=== PATIENT | male | born 1950 | race Caucasian/White ===

== ENCOUNTER 2025-01-26 13:04 | Outpatient (CLI) | payer MEDICARE, SELFPAY ==
--- NOTE | ~2025-01-26 | XR_ITS ---
XR finger 5th LT min 2V 01/26/2025 13:57 Indication: Fracture left fifth finger Procedure: 4 views left fifth finger Comparison: No prior studies for comparison. Findings: There is an age-indeterminate fracture dorsal base left fifth distal phalanx. Mild diffuse soft tissue swelling. There is osteoarthritis of the distal interphalangeal joint. Impression: 1: Age-indeterminate fracture dorsal base left fifth distal phalanx. Correlate for point tenderness. Reviewed, dictated and finalized at location A. Impression: 1: Age-indeterminate fracture dorsal base left fifth distal phalanx. Correlate for point tenderness.
--- OUTSIDE RECORDS SUMMARY | 2025-01-26 13:23 | XMS_ITS | Encounter Summary ---
Author Organization [facility] Address [address] [place] [address] Care Team Providers Care Auditing Manager Name Role Phone Unavailable Primary Care Provider Unavailabl e Encounter Details Date Type Department Care Team (Late st Contact Info) Description 11/15/2024 Lab Requisition [facility] - DermPath Lab [address] [facility] [place] [id number] Shae Askew MD [address] [place] [address] Neoplasm of uncertain behavior of skin Social History Tobacco Use Types Packs/Day Years Used Date Smoking Tobacco: Never Assessed Sex and Gender Information Value Date Recorded Sex Assigned at Not on file Legal Sex Male 11:55 AM CDT Gender Identity Not on file Sexual Orientation Not on file documented as of this encounter Plan of Treatment Not on file documented as of this encounter Procedures Procedure Name Priority Date/Time Associated Diagnosis Comments DERMATOPATHOLOGY Routine 11/15/2024 9:37 AM CDT Neoplasm of uncertain behavior of skin documented in this encounter Results * DERMATOPATHOLOGY (11/15/2024 9:37 AM CDT) Case Report Dermatopathology Report Case: [id number] Authorizing Provider: Shae Askew MD Collected: 11/15/2024 09:37 AM Ordering Location: [facility] - Received: 11/16/2024 07:59 AM DermPath Lab Pathologist: Maria Luz Hope MD Specimen: Skin, left radial dorsal hand 1:26 PM CDT DERMATOPATHOLOGY LABORATORY Final Diagnosis Specimen A. 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 The specimen consists of a shave biopsy measuring 10x7x3 mm. Jar 0. 1:26 PM T DERMATOPATHOLOGY LABORATORY Microscopic Description Specimen A. SKIN, left radial dorsal hand: The epidermis shows parakeratosis, full thickness disorderly maturation of keratinocytes, mitoses at different levels, and dyskeratotic cells. 1:26 PM T DERMATOPATHOLOGY LABORATORY Disclaimer An external and internal positive and negative controls are appropriate for the histochemical, immunohistochemical and immunofluorescence stain(s) in this case (if any), except where stated explicitly. The performance characteristics of the stain(s) cited in this report were developed and its performance characteristic determined by the Dermatopathology Laboratory at [facility], directed by Dr. Hermilo Martin. These tests need not be, and therefore are not, approved by the [place] Food and Drug Administration. The tests are used for clinical purposes. Billing Codes Specimen Charges Stain Charges 12945 1 1:26 PM CDT DERMATOPATHOLOGY LABORATORY Embedded Images 1:26 PM CDT DERMATOPATHOLOGY LABORATORY Pathology/Cytolo gy TISSUE SPECIMEN FROM SKIN / Unknown 11/15/2024 9:37 AM CDT 11/16/2024 7:59 AM CDT us Shae Askew MD LAB - PATHOLOGY/CYTOLOGY ORDERAB LES Final Result DERMATOPATHOLOGY LABORATORY [facility] - Department of Dermatology [address], [address] [phone] documented in this encounter Visit Diagnoses Diagnosis Neoplasm of uncertain behavior of skin documented in this encounter
--- OUTSIDE RECORDS SUMMARY | 2025-01-26 13:23 | XMS_ITS | Encounter Summary ---
Author Organization [facility] Address [address] [place] [address] Care Team Providers Care Assembler Filters Name Role Phone Issa Dominguez DO Primary Care Provider [phone] Encounter Details Date Type Department Care Team (Late st Contact Info) Description 12/17/2024 Results Follow-Up [facility] Primary Care [id number] [place] [address] [place] [address] [place] [address] [place] [address] COLON CANCER SCREEN, STOOL DNA Social History Tobacco Use Types Packs/Day Years Used Date Smoking Tobacco: Never Smokeless Tobacco: Never Alcohol Use Standard Drinks/Week Comments Yes 0 (1 standard drink = 0.6 oz pur e alcohol) 2 or 3 drinks per week, if any Sex and Gender Information Value Date Recorded Sex Assigned at Not on file Legal Sex Male 11:32 AM CDT Gender Identity Not on file Sexual Orientation Not on file documented as of this encounter Plan of Treatment Upcoming Encounters Date Type Department Care Team (Late st Contact Info) Description 05/23/2025 10:45 AM CREDIT CARD CONTROL CLERK Office Visit [facility] at the [facility] Medicine [address] [place] [address] Nadine Rivera MD [address] [place] [address] 05/23/2025 1:30 PM CREDIT CARD CONTROL CLERK Office Visit [facility] Primary Care [id number] [place] [phone] [place] [address] [place] [address] documented as of this encounter Goals Goal Patient Goal Type Associated Problems Recent Progress Patient-Stated? Author HYPERTENSIO N CARE PLAN GOAL Care Plan [facility] HYPERTENSION CARE PLAN PROBLEM No Issa Dominguez DO documented as of this encounter Visit Diagnoses Not on filedocumented in this encounter Additional Health Concerns Active Problems Noted Date Diagnosed Date [facility] HYPERTENSION CARE PLAN PROBLEM 5 documented as of this encounter Care Teams Assembler Filters Relationship Specialty Start [place] [address] [place] [phone] PCP - General Family Practice 11/11/24 documented as of this encounter
--- OUTSIDE RECORDS SUMMARY | 2025-01-26 13:23 | XMS_ITS | Encounter Summary ---
Author Organization [facility] Address [address] [place] [address] Care Team Providers Care Gas Usage Meter Clerk Name Role Phone Issa Dominguez Primary Care Provider [phone]- [phone] Reason for Visit * Reason Comments Procedure cysto Encounter Details Date Type Department Care Team (Late st Contact Info) Description 01/25/2025 12:40 PM CDT Procedure visit [facility] at the [facility] Medicine [address] [place] [address] Nadine Rivera MD [address] [facility] [address] [place], [place] [id number] Gross hematuria (Primary Dx); BPH with obstruction/lower urinary tract symptoms; Prostate cancer screening Social History Tobacco Use Types Packs/Day Years [...] on file documented as of this encounter Last Filed Vital Signs Vital Sign Reading Time Taken Comments Blood Pressure - - Pulse - - Temperature - - Respiratory Rate - - Oxygen Saturation - - Inhaled Oxygen Concentration - - Weight 83.5 kg (184 lb) 01/25/2025 12:04 PM CDT Height - - Body Mass Index 25.66 11/11/2024 1:11 PM CDT documented in this encounter Progress Notes * Nadine Rivera MD - 01/25/2025 12:09 PM CDT Lake Truong Sr. is a 74 y.o. male 01/25/2025 Chief Complaint Patient presents with Procedure cysto HPI: Lake Truong Sr. is a 74 y.o. male presents today for fu of several urologic issues. He was initially seen for hematospermia.. Urine dipstick and culture were negative on May 24, 2021. He notes that this was an isolated episode. It was a painless event. He has not had this since. The patient had a CT urogram done on June 04, 2021. There were no urinary system calculi. Therewere no upper tract filling defects. There were bilateral renal parapelvic cysts. There was also a 1.9 cm left upper pole renal cyst. The prostate was noted to be enlarged. There was no pelvic lymphadenopathy. The seminal vesicles were prominent. There were bladder diverticuli noted there was an incidental note of bilateral fat-containing inguinal hernias He does have some variable voiding symptoms with decreased flow and urinary frequency. He can have nocturia sometimes up to 2 times per night. He was previously started on tamsulosin and finasteride in June 2021. He is not certain that these have been effective in helping improve his voiding symptoms. He does continue on these medications. His PSA was 4.39 on June 25, 2021. Digital rectal examination in May 2021 revealed a 40 g benign gland. The patient had a prostate MRI on July 24, 2021. Prostate volume was 87.35 cc. There were no concerning focal lesions. There was some BPH with a markedly enlarged median lobe. There were no enlarged lymph nodes. The osseous structures were unremarkable. There were multiple large bladder diverticuli. There was also a small fat-containing left inguinal hernia. His cystoscopy in July 2021 revealed multiple bladder diverticuli. There were no tumors. There was a markedly enlarged median lobe as well as a long prostatic urethra with trilobar hyperplasia. The patient had an office-based prostate biopsy on September 12, 2021. Prostate volume was 85.9 cc. Pathology revealed benign prostatic tissue. There was no malignancy identified. His prostate biopsy tissue was sent for a confirm MDX genetic test which revealed that he was DNA methylation negative suggesting a 96% negative predictive value for high-grade disease and a 90% negative predictive value for upgrade to prostate cancer on repeat prostate biopsy. Follow-up PSA was 1.58 in May 2022. 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 He will have trouble achieving and maintaining erections. He has not been on PDE 5 inhibitors in the past. He is not on nitrates currently. He isnot interested in intervention at this time. Unfortunately, he was recently in the last year (4886-2110). His from a heart attack. He has not engaged in any new relationships. He began having some hematuria in the beginning of January 2025. He had a CT urogram done on January 18, 2025. I personally reviewed the images and agree with the report in the patient's chart. There were small bilateral parapelvic renal cyst. There were no urinary system calculi. There were no concerning renal masses. There were no upper tract filling defects. Theprostate was enlarged. There were numerous bladder diverticuli. Calculated ellipsoid prostate volume was 125 cc His hematuria has fortunately cleared Current Outpatient Medications on File Prior to Visit Medication Sig Dispense Refill finasteride (PROSCAR) 5 mg tablet TAKE 1 TABLET BY MOUTH EVERY DAY 90 Tablet 3 tamsulosin (FLOMAX) 0.4 mg capsule TAKE 1 CAPSULE BY MOUTH EVERY DAY 90 Capsule 3 amLODIPine (NORVASC) 5 mg tablet Take 1 Tablet (5 mg) by mouth daily. 90 Tablet 3 famotidine (PEPCID) 20 mg tablet take 1 tablet by mouth twice a day 180 Tablet 3 glucosamine sulfate (Glucosamine) 500 mg tablet Take 500 mg by mouth daily. EPINEPHrine (EPIPEN) 0.3 mg/0.3 mL Auto-Injector Inject 0.3 mL (0.3 mg) by intramuscular injection 1 time daily as needed for Anaphylaxis. 1 Each 0 red yeast rice 600 mg Tablet Take 600 mg by mouth every 12 hours. No current facility-administered medications on file prior to visit. Allergies Allergen Reactions Peanut Other (See Comments) AIRWAY CLOSES Past Medical History: Diagnosis Date Arthritis BPH (benign prostatic hyperplasia) GERD (gastroesophageal reflux disease) Hx of rheumatic fever x2 Temporomandibular disorder Past Surgical History: Procedure Laterality Date HX CATARACT REMOVAL Bilateral 2022 HX CATARACT REMOVAL Bilateral HX COLONOSCOPY AGE 62 TN LAPAROSCOPY SURG RPR INITIAL INGUINAL HERNIA Bilateral 03/12/2023 HERNIA INGUINAL REPAIR BILATERAL LAPAROSCOPIC WITH MESH performed by Elijah Del Valle MD at [facility] PT DENIES RELEVANT SURGICAL HISTORY Family History Problem Relation Name Age of Onset Heart Disease Father Slade Cancer Mother Qing melanoma Cancer Sister Keiry melanoma Heart Disease Sister Keiry Asthma Sister Keiry Cancer Maternal Grandfather Fritz stomach cancer Heart Disease Paternal Grandfather Aryan Melanoma Brother Tono Truong Diabetes Neg Hx Social History Tobacco Use Smoking status: Never Smokeless tobacco: Never Substance Use Topics Alcohol use: Yes Comment: 2 or 3 drinks per week, if any ROS: 14 point review of systems was done and is negative besides that mentioned in history present illness. Wt 83.5 kg (184 lb) BMI 25.66 kg/m?? Constitutional: well developed, normal attention to grooming Eyes: Moist conjunctiva, Anicteric sclerae ENMT: Moist mucous membranes, ears normal. Normal dentition Respiratory: Nonlabored respirations MSK: able to move all extremities Skin: no visible lesions, warm/dry Neuro: no focal deficits, CN grossly intact Psych: aaox3, normal mood and affect male exam in May 2024 revealed MARY:. Normal sphincter tone, no masses. Prostate showed 50 g benign gland Procedure note. Indication for ostomy: Gross hematuria Cystoscopy: Betadine prep, sterile technique, antibiotics given. The patient was asked if they had any further questions prior to proceeding with the procedure. All questions were answered and the patient consented to the procedure. The cystoscope was introduced into the urethral meatus and advanced into the bladder under direct visualization. The bladder was systematically examined. The bladder was unremarkable and without overt tumor or other mucosal abnormalities. The ureteral orifices appeared normal. The bladder neck was normal on retroflexion. The urethra was unremarkable. There were multiple bladder diverticuli. There were no bladder tumors. Examination of the prostate reveals trilobar hyperplasia with a significant median lobe and significant intravesical prostatic protrusion. No results found for this or any previous visit. Results for orders placed or performed during the hospital encounter of 11/02/21 PATHOLOGY Result Value Ref Range CASE REPORT Surgical Pathology Report Case: [id number] Authorizing Provider: Nadine Rivera MD Collected: 11/02/2021 09:51 AM Ordering Location: [facility] Received: 11/02/2021 09:51 AM Services [facility] Pathologist: Daniel Johnson DO Specimen: Other, specify FINAL DIAGNOSIS A request for ConfirmMDx testing was received 11/01/[address] Nadine Rivera. Tissue blocks are forwarded to [facility] in [place], [place] where the test will be performed. Results will be directly issued to the treating physician by the laboratory performing the test. CLINICAL INFORMATION Z01.89 - Encounter for laboratory test [ICD-10-CM] COMMENT Special stain, immunohistochemical, and/or in situ hybridization results are interpreted with controls that demonstrate appropriate staining reactions. Note on use of immunohistochemistry reagents and in situ hybridization probes: These tests were developed and their performance characteristics determined by [facility], Department of Laboratory Medicine. It has not been cleared or approved by the U.S. Food and Drug Administration. The FDA has determined that such clearance or approval is not necessary. The test is used for clinical purposes. It should not be regarded as investigational or for research. This laboratory is certified to perform high complexity testing. Frozen section/operating room consultation, gross examination and dissection, and case sign out mayhave been performed in part or completely in the following laboratories: [facility], [place] #[id number] [address] [place] [address] [facility], [place] #[id number] [address] [place] [address] [facility], [place] #[id number] [address] [place] [address] This report was created with the Kuaiyong voice-activated dictation system. Inherent to this system is the possibility of syntax, grammar, punctuation and other errors that could impact the interpretation of the report. If there are interpretative questions about aspects of this report, please contact the performing pathologist. Lab Results Component Value Date/Time CREAT 0.97 05/21/2024 10:21 AM CREATPOC 1.00 01/18/2025 01:27 PM Lab Results Component Value Date/Time PSA 1.31 05/21/2024 10:21 AM PSA 1.79 05/19/2023 11:18 AM PSA 1.58 05/27/2022 09:34 AM Lab Results Component Value Date/Time PHUA 6.5 05/24/2021 10:33 AM SGUR 1.009 05/24/2021 10:33 AM URINELEUKOC NEGATIVE 05/24/2021 10:33 AM NITRITEUA NEGATIVE 05/24/2021 10:33 AM KETONEURINE NEGATIVE 05/24/2021 10:33 AM PROTEINUA NEGATIVE 05/24/2021 10:33 AM GLUUA NEGATIVE 05/24/2021 10:33 AM BLOODUA NEGATIVE 05/24/2021 10:33 AM Assessment/Plan: 1. Hematospermia: Urine culture was negative on May 24, 2021. CT urogram on June 04, 2021 was negative for any urinary system calculi or concerning renal masses. There were bilateral renal cyst. There were no upper tract filling defects. His prostate was noted to be quite enlarged. There were bladder diverticuli. Genitourinary exam was unremarkable May 29, 2021 aside from an enlarged prostate (40 g benign), and bilateral atrophic testicles. 2. BPH with lower urinary tract symptoms: Continue with tamsulosin and finasteride. Office cystoscopy on July 24, 2021 reveals trilobar hyperplasia of the prostate with a markedly enlarged median lobe. There were multiple bladder diverticuli and moderate trabeculation noted. He would like to continue with the medications including tamsulosin and finasteride. He feels that his voiding symptoms are well controlled on these medications. He does not want surgical intervention for this at this time. 3. Organic impotence: We did discuss treatment with PDE 5 inhibitors as an option for his symptoms.He would like to consider this. Side effects were reviewed. We also discussed the use of daily Cialis which might help improve voiding and erectile function. We will hold off treatment for his organic impotence at this time. He will let me know if he would like to proceed with this in the future. 4. Elevated PSA: His PSA was 4.39 on June 25, 2021. Digital rectal examination in Mayevealed a 40 g benign gland. The patient had a prostate MRI on July 24, 2021. Prostate volume was 87.35 cc. There were no concerning focal lesions. There was some BPH with a markedly enlarged median lobe. There were no enlarged lymph nodes. The osseous structures were unremarkable. There were multiple large bladder diverticuli. There was also a small fat-containing left inguinal hernia. The patient had an office-based prostate biopsy on September 12, 2021. Prostate volume was 85.9 cc. Pathology revealed benign prostatic tissue. There was no malignancy identified. Confirm MDX genetic test was negative. Follow-up PSA was 1.58 in May 2022 and 1.May. Repeat PSA was 1.31 in May 2024, corrected for finasteride this is 2.62 MARY stable in May 2024 He will follow-up in May 2025 with PSA and MARY. 5. Hematuria: He had gross hematuria in January [address] urogram in January 2025 revealed a markedly enlarged prostate with no hydronephrosis, urinary system calculi, upper tract filling defect, or renal mass. The cystoscopy was negative for any bladder tumors in January 2025. Urine will be sent for microscopy,culture, and cytology. I suspect the hematuria was coming from his prostate. He will let me know if this recurs. We will reassess his symptoms at his follow-up visit in May 2025. TOBACCO COUNSELING He is not a tobacco user. This note was done using Kuaiyong dictation software. The above note may or may not have been proofread for accuracy. documented in this encounter Plan of Treatment Upcoming Encounters Date Type Department Care Team (Late st Contact Info) Description 05/23/2025 10:45 AM ROSE GRADER Office Visit [facility] at the [facility] [address] [place] [address] Nadine Rivera MD [address] [facility] [address] [place] [address] 05/23/2025 1:30 PM ROSE GRADER Office Visit [facility] Primary Care [address] [place] [address] [place] [address] [facility] [place] [address] Pending Results Name Type Priority Associated Diagnoses Date /Time URINE CULTURE Microbiology Routine Gross hematuria 01/25/2025 12:33 PM CDT Scheduled Orders Name Type Priority Associated Diagnoses Orde r Schedule URINE CULTURE Microbiology Routine Gross hematuria Expected: 01/25/2025, Expires: 03/26/2025 documented as of this encounter Goals Goal Patient Goal Type Associated Problems Recent Progress Patient-Stated? Author HYPERTENSIO N CARE PLAN GOAL Care Plan SHAMEKA MYC HYPERTENSION CARE PLAN PROBLEM No Issa Dominguez DO documented as of this encounter Procedures Procedure Name Priority Date/Time Associated Diagnosis Comments URINALYSIS MICROSCOPY ONLY Routine 01/25/2025 12:33 PM CDT Gross hematuria CYTOLOGY, NON GYNE Routine 01/25/2025 12 :32 PM CDT Gross hematuria documented in this encounter Results * URINALYSIS MICROSCOPY ONLY (01/25/2025 12:33 PM CDT) WBC UA NONE SEEN < OR = 5 /HPF [facility] RBC UA NONE SEEN < OR = 2 /HPF [facility] EPITHELIAL CELLS, URINE NONE SEEN < OR = 5 /HPF [facility] BACTERIA UA NONE SEEN NONE SEEN /HPF [facility] HYALINE CAST NONE SEEN NONE SEEN /LPF [facility] URINE NOTE [facility] Comment: This urine was analyzed for the presence of WBC, RBC, bacteria, casts, and other formed elements. Only those elements seen were reported. Test Performed at: [facility] [address] [address] [phone] Annie Michelle Vo Urine URINE SPECIMEN OBTAINED BY CLEAN CATCH PROCEDURE / Unknown 01/25/2025 12:33 PM CDT 01/26/2025 2:50 AM CDT Nadine Rivera MD URINE ORDERABLES Final Re sult [facility] [phone] [facility] [address] [address] [phone] * CYTOLOGY, NON GYNE (01/25/2025 12:32 PM CDT) CASE REPORT Medical Cytology Report Case: [id number] Authorizing Provider: Nadine Rivera MD Collected: 01/25/2025 12:32 PM Ordering Location: [facility] at Received: 01/26/2025 07:26 AM the [facility] Pathologist: Gloria Hartley MD Specimen: Urine, clean catch 11:45 AM CDT [facility] FINAL DIAGNOSIS Urine: - Negative for high-grade urothelial carcinoma. See microscopic description. 11:45 AM CDT [facility] at 1145 CDT GROSS DESCRIPTION Received is a container labeled Lake Truong Sr. and voided urine. It contains 70 mL of clear yellow fluid. One ThinPrep made. SK 11:45 AM CDT [facility] MICROSCOPIC DESCRIPTION The slide labeled [id number] and Lake Truong. The ThinPrep slide shows scant benign urothelial cells and benign squamous epithelial cells. No high grade urothelial carcinoma is identified. No papillary clusters of urothelial cells are identified, which makes a low grade lesion unlikely. 11:45 AM T [facility] CLINICAL INFORMATION R31.0 - Gross hematuria [ICD-10-CM] 11:45 AM CDT [facility] COMMENT Special stain, immunohistochemical, and/or in situ hybridization results are interpreted with controls that demonstrate appropriate staining reactions. Note on use of immunohistochemistry reagents and in situ hybridization probes: These tests were developed and their performance characteristics determined by [facility], Department of Laboratory Medicine. It has not been cleared or approved by the U.S. Food and Drug Administration. The FDA has determined that such clearance or approval is not necessary. The test is used for clinical purposes. It should not be regarded as investigational or for research. This laboratory is certified to perform high complexity testing. Cases may have been signed out in part or completely in the following laboratories: [facility], CLIA #[id number] [address] [place] [address] [facility], [place] #[id number] [address] [place] [address]. 11:45 AM CDT [facility] Body fluid URINE SPECIMEN OBTAINED BY CLEAN CATCH PROCEDURE / Unknown Collection / Unknown 01/25/2025 12:32 PM CDT 01/26/2025 7:26 AM CDT Nadine Rivera MD PATHOLOGY/CYTOLOGY ORDERA BLEBlossom Final Result [facility] CLIA# [id number] [address] [place] [address] [place] [address] documented in this encounter Visit Diagnoses Diagnosis Gross hematuria- Primary BPH with obstruction/lower urinary tract symptoms Hypertrophy of prostate with urinary obstruction and other lower urinary tract symptoms (LUTS) Prostate cancer screening Special screening for malignant neoplasm of prostate documented in this encounter Additional Health Concerns Active Problems Noted Date Diagnosed Date SHAMEKA MYC HYPERTENSION CARE PLAN PROBLEM 5 documented as of this encounter Care Teams Gas Usage Meter Clerk Relationship Specialty [place] [address] [facility] [place] [id number] PCP - General Family Practice 11/11/24 documented as of this encounter
--- OUTSIDE RECORDS SUMMARY | 2025-01-26 13:23 | XMS_ITS | Clinical Summary ---
Author Organization [facility] Address [address] [place] [address] Phone Care Team Providers Care Gasoline Pump Installer Name Role Phone Krystin Newsome MD Primary Care Provider Allergies Active Allergy Reactions Criticality Noted Date Comments Peanut Allergen Powder-Dnfp Other (see Comments) High 02/12/2023 AIRWAY CLOSES Medications finasteride (PROSCAR) 5 MG Tablet Take 5 mg by mouth. 2 Active tamsulosin (FLOMAX) 0.4 MG Capsule Take 0.4 mg by mouth. 2 Active famotidine (PEPCID) 20 MG TabletIndication s:Gastroesophage al reflux disease, unspecified whether esophagitis present Take 1 Tablet by mouth 2 times daily. 90 Tablet 3 3 Active Red Yeast Rice Extract (RED YEAST RICE PO) Take by mouth. Active HYDROcodone-acet aminophen (NORCO) 5-325 MG TabletIndication s:Non-recurrent bilateral inguinal hernia without obstruction or gangrene Take 1 Tablet by mouth every 8 hours as needed for Moderate or more severe pain. 12 Tablet 3 Active Additional Information Patient not taking.Reported on 09/15/2023 Active Problems No known active problems Social History Tobacco Use Types Packs/Day Years Used Date Smoking Tobacco: Never Smokeless Tobacco: Never Alcohol Use Standard Drinks/Week Comments Yes 0 (1 standard drink = 0.6 oz pur e alcohol) rarely Sex and Gender Information Value Date Recorded Sex Assigned at Not on file Legal Sex Male 9:09 PM CDT Gender Identity Not on file Sexual Orientation Not on file Last Filed Vital Signs Vital Sign Reading Time Taken Comments Blood Pressure 140/60 09/15/2023 2:30 PM CDT Pulse 87 09/15/2023 2:30 PM CDT Temperature 36.7 C (98.1 F) 09/15/2023 2:30 PM CDT Respiratory Rate 18 09/15/2023 2:30 PM CDT Oxygen Saturation 98% 09/15/2023 2:30 PM CDT Inhaled Oxygen Concentration - - Weight 81.6 kg (180 lb) 06/24/2023 1:19 PM STRIPPER OPAQUER Height 180.3 cm (5' 11) 02/02/2023 12:12 PM CDT Body Mass Index 25.1 02/02/2023 12:12 PM CDT Plan of Treatment Health Maintenance Due Date Last Done Comments Hepatitis C Virus (HCV) Screening 1950 TdaP Immunization 1950 Cologuard 10/10/1996 Colonoscopy 10/10/1996 Colorectal Cancer Screening 10/10/1996 Immunochemical Fecal Occult Blood 10/10/1996 Pneumococcal Immunization (5 0+ years) (1 of 1 - PCV) 10/10/2001 Zoster Immunization (1 of 2) 10/10/2001 SARS-COV-2 Immunization (1 - season) 2024 Influenza Immunization (#1) 2025 Respiratory Syncytial Virus (RSV) Immunization (Adult) (1 - 1-dose 75+ series) 10/10/2026 Hepatitis B Immunization Aged Out No longer eligible based on patient's age to complete this topic Human Papillomavirus (HPV) Immunization Aged Out No longer eligible b ased on patient's age to complete this topic Meningococcal Immunization (ACWY) Aged Out No longer eligible based on patient's age to complete this topic Rotavirus Immunization Aged Out No lo nger eligible based on patient's age to complete this topic Insurance MEDICARE [employer] S[employer]IOR SUPPLEMENTAL Care Teams Gasoline Pump Installer Relationship Specialty [place] [id number] [address] [phone] PCP - General Family Medicine 09/04/22
--- OUTSIDE RECORDS SUMMARY | 2025-01-26 13:23 | XMS_ITS | Clinical Summary ---
Author Organization [facility] Address [address] [place] [address] Care Team Providers Care Skein Washer Name Role Phone Unavailable Primary Care Provider Unavailabl e Source Comments [facility],non-owned Affiliates and Associated Physician Practices is amultiple site organization consisting of ambulatory clinics and hospital sitesin [place], [place], [place] and [place]. This disclosure is being madepursuant to the Care Everywhere program and may not contain all information available regarding this patient. Last updated 18.[facility] Encounters Date Type Department Care Team Description 11/15/2024 Lab Requisition [facility] - DermPath Lab [address] [place] [address] Shae Askew MD Neoplasm of uncertain behavior of skin from Last 3 Months Social History Tobacco Use Types Packs/Day Years Used Date Smoking Tobacco: Never Assessed Sex and Gender Information Value Date Recorded Sex Assigned at Not on file Legal Sex Male 11:55 AM CDT Gender Identity Not on file Sexual Orientation Not on file Plan of Treatment Health Maintenance Due Date Last Done Comments COLOGUARD (AGES 45-75) - COL ON CA SCREENING 1950 COLON MONITORING 1950 COLONOSCOPY - COLON CA SCREENING 1950 CT COLONOGRAPHY - COLON CA SCREENING 1950 Colorectal Cancer Screening 1950 FIT - COLON CA SCREENING 1950 FLEX SIG - COLON CA SCREENING 1950 LIPID TESTING 1950 MEDICARE AWV 12 MONTHS 1950 HEPATITIS C SCREENING 10/06/1969 DTAP/TDAP/TD VACCINES (1 - Tdap) 10/10/1970 PNEUMOCOCCAL VACCINE 50+ (1 of 1 - PCV) 10/10/2001 ZOSTER VACCINE (1 of 2) 10/10/2001 COVID-19 VACCINE (1 - 2023-2 5 season) 2024 DEPRESSION SCREENING 07/07/2024 INFLUENZA VACCINE (#1) 2025 Respiratory Syncytial Virus (RSV) Vaccine Pt: or over 60 yrs (1 - 1-dose 75+ series) 10/10/2026 HEPATITIS B VACCINE Aged Out No longe r eligible based on patient's age to complete this topic HIB VACCINE Aged Out No longer eligi ble based on patient's age to complete this topic HPV VACCINE Aged Out No longer eligi ble based on patient's age to complete this topic MENINGOCOCCAL (Group B) VACC INE SHARED DECISION-MAKING Aged Out No longer eligibl e based on patient's age to complete this topic MENINGOCOCCAL GROUPS A/C/Y/W VACCINE Aged Out No longer eligible b ased on patient's age to complete this topic Procedures Procedure Name Priority Date/Time Associated Diagnosis Comments DERMATOPATHOLOGY Routine 11/15/2024 9:37 AM CDT Neoplasm of uncertain behavior of skin from Last 3 Months Results * DERMATOPATHOLOGY (11/15/2024 9:37 AM CDT) Case Report Dermatopathology Report Case: [id number] Authorizing Provider: Shae Askew MD Collected: 11/15/2024 09:37 AM Ordering Location: [facility] - Received: 11/16/2024 07:59 AM DermPath Lab [...] measuring 10x7x3 mm. Jar 0. 1:26 PM CDT DERMATOPATHOLOGY LABORATORY Microscopic Description Specimen A. SKIN, left radial dorsal hand: The epidermis shows parakeratosis, full thickness disorderly maturation of keratinocytes, mitoses at different levels, and dyskeratotic cells. 5 1:26 PM CDT DERMATOPATHOLOGY LABORATORY Disclaimer An external and internal positive and negative controls are appropriate for the histochemical, immunohistochemical and immunofluorescence stain(s) in this case (if any), except where stated explicitly. The performance characteristics of the stain(s) cited in this report were developed and its performance characteristic determined by the Dermatopathology Laboratory at [facility], directed by Dr. Hermilo Martin. These tests need not be, and therefore are not, approved by the [place] Food and Drug Administration. The tests are used for clinical purposes. Billing Codes Specimen Charges Stain Charges 64338 1 5 1:26 PM CDT DERMATOPATHOLOGY LABORATORY Embedded Images 1:26 PM CDT DERMATOPATHOLOGY LABORATORY Pathology/Cytolo gy TISSUE SPECIMEN FROM SKIN / Unknown 11/15/2024 9:37 AM CDT 11/16/2024 7:59 AM CDT Shae Askew MD LAB - PATHOLOGY/CYTOLOGY ORDERAB LES Final Result DERMATOPATHOLOGY LABORATORY [facility] - Department of Dermatology Formerly [facility] [address] [place] [address], [address] [phone] from Last 3 Months Insurance MEDICARE [employer]
--- OUTSIDE RECORDS SUMMARY | 2025-01-26 13:23 | XMS_ITS | Clinical Summary ---
Author Organization [facility] Address [address] [place] [address] Care Team Providers Care Engine Watchman Name Role Phone Issa Dominguez DO Primary Care Provider [phone] Allergies Active Allergy Reactions Criticality Noted Date Comments Peanut Other (See Comments) High 02/12/2023 AIRWAY CLOSES Medications red yeast rice 600 mg Tablet Take 600 mg by mouth every 12 hours. Active EPINEPHrine (EPIPEN) 0.3 mg/0.3 mL Auto-Injector Inject 0.3 mL (0.3 mg) by intramuscular injection 1 time daily as needed for Anaphylaxis. 1 Each 3 Active glucosamine sulfate (Glucosamine) 500 mg tablet Take 500 mg by mouth daily. Active famotidine (PEPCID) 20 mg tablet take 1 tablet by mouth twice a day 180 Tablet 3 4 Active finasteride (PROSCAR) 5 mg tablet TAKE 1 TABLET BY MOUTH EVERY DAY 90 Tablet 3 4 Active tamsulosin (FLOMAX) 0.4 mg capsule TAKE 1 CAPSULE BY MOUTH EVERY DAY 90 Capsule 3 4 Active amLODIPine (NORVASC) 5 mg tablet Take 1 Tablet (5 mg) by mouth daily. 90 Tablet 3 4 Active Active Problems Problem Noted Date Diagnosed Date Restless legs 11/07/2021 Abdominal bloating 11/07/2021 Hyperlipidemia 11/07/2021 Assessment & Plan (11/11/2024 2:04 PM CDT): - His ASCVD risk is calculated at 20%, indicating a high risk for major cardiovascular events within the next decade. - The potential benefits and risks of statin therapy were discussed, including the possibility of muscle aches and pains. - He is advised to continue using red yeast rice for cholesterol management. Prefers to avoid statin at this time due to potential side effect concerns. - A coronary artery calcium score test may be considered if he expresses interest. Hx of rheumatic fever 05/08/2021 Elevated blood pressure read ing without diagnosis of hypertension 05/08/2021 Arthralgia 05/08/2021 Overview (05/08/2021): Seasonal -spring and fall. Chronic low back pain without sciatica Chronic neck pain 05/08/2021 Gastroesophageal reflux disease 05/08/2021 Encounters Date Type Department Care Team Description 01/25/2025 12:40 PM CDT Procedure visit [facility] at the [place] [address] [facility] [address] [place] [phone] Nadine Rivera MD Gross hematuria (Primary Dx); BPH with obstruction/lower urinary tract symptoms; Prostate cancer screening 01/18/2025 1:11 PM CDT - 01/18/2025 11:59 PM CDT Hospital Encounter [facility] [address] [address] Nadine Rivera MD Discharge Disposition: Home or Self Care 01/09/2025 Orders Only [facility] at the [facility] [address] [place] [address] Nadine Rivera MD Gross hematuria (Primary Dx) 12/21/2024 External Device Data STL ABSTRACTION Provider, Abstract 12/17/2024 Results Follow-Up [facility] [address] [facility] [place] [address] Issa Dominguez DO COLON CANCER SCREEN, STOOL DNA 11/30/2024 External Device Data STL ABSTRACTION Provider, Abstract 11/25/2024 External Device Data STL ABSTRACTION Provider, Abstract 11/24/2024 External Device Data STL ABSTRACTION Provider, Abstract 11/23/2024 External Device Data STL ABSTRACTION Provider, Abstract 11/11/2024 1:30 PM CDT Office Visit [facility] [address] [phone] Issa Dominguez DO Benign hypertension (Primary Dx); Pure hypercholesterolemia; Benign prostatic hyperplasia with lower urinary tract symptoms, symptom details unspecified; Screening for colon cancer; Primary osteoarthritis involving multiple joints from Last 3 Months Family History Medical History Relation Name Comments Melanoma Brother 2 Tono Gavaza Heart Disease Father Slade Cancer Maternal Grandfather Fritz stomach cancer Cancer Mother Qing melanoma Heart Disease Paternal Grandfather Ozark Asthma Sister Keiry Cancer Sister Keiry melanoma Heart Disease Sister Keiry Diabetes Neg Hx Relation Name Status Comments Brother 1 Alive Brother 2 Tono [place] Alive Father Slade Maternal Grandfather Fritz Mother Qing Paternal Grandfather [place]ark Sister Keiry Alive Social History Tobacco Use Types Packs/Day Years Used Date Smoking Tobacco: Never Smokeless Tobacco: Never Tobacco Cessation:Counseling Given: Not Answered Alcohol Use Standard Drinks/Week Comments Yes 0 [...] Sign Reading Time Taken Comments Blood Pressure 130/76 11/11/2024 1:11 PM CDT Pulse 94 11/11/2024 1:11 PM CDT Temperature 36.4 C (97.5 F) 11/11/2024 1:11 PM CDT Respiratory Rate 18 05/24/2024 10:51 AM QUARTER SEAMER Oxygen Saturation 97% 11/11/2024 1:11 PM CDT Inhaled Oxygen Concentration - - Weight 83.5 kg (184 lb) 01/25/2025 12:04 PM CDT Height 180.3 cm (5' 11) 11/11/2024 1:11 PM CDT Body Mass Index 25.66 11/11/2024 1:11 PM CDT Plan of Treatment Upcoming Encounters Date Type Department Care Team (Late st Contact Info) Description 05/23/2025 10:45 AM QUARTER SEAMER Office Visit [facility] at the [facility] [address] [place] [phone] Nadine Rivera MD [address] [place] [address] 05/23/2025 1:30 PM QUARTER SEAMER Office Visit [facility] [address] [address] [place] [address] [place] [address] [facility] [place] [address] Health Maintenance Due Date Last Done Comments DTAP/TDAP/TD VACCINES (1 - Tdap) 10/10/1970 COLORECTAL CANCER SCREENING (AUTO ORDER) 10/10/1996 COLORECTAL SCREENING 10/10/1996 Flex Sig/CT Colonography Q 5 years 10/10/1996 PNEUMOCOCCAL VACCINE 50+ YEA RS (1 of 1 - PCV) 10/10/2001 ZOSTER VACCINE (1 of 2) 10/10/2001 FIT/FOBT Q 1 YEAR (AUTO ORDER) 02/08/2024 02/07/2023 , 02/06/2023 FIT/FOBT Q 1 year 02/08/2024 02/07/2023 INFLUENZA VACCINE (#1) 2025 05/20/2024, 2022 Traditional Medicare (ACO) A nnual Wellness Visit 05/21/2025 05/20/2024, 05/15/2023, 05/14/2022, Additional history exists RSV VACCINE (60+ or ) (1 - 1-dose 75+ series) 10/10/2026 Colorectal Cancer Screening 12/11/2027 FIT-DNA Q 3 years 12/11/2027 12/10/2024 FIT/ DNA Q 3 YEARS (AUTO ORDER) 12/11/2027 Colorectal Cancer Screening (AUTO ORDER) 12/10/2029 FLEX SIG/CT COLONOGRAPHY Q 5 YEARS (AUTO ORDER) 12/10/2029 12/10/2024, 12/10/2024 Goals Goal Patient Goal Type Associated Problems Recent Progress Patient-Stated? Author HYPERTENSIO N CARE PLAN GOAL Care Plan [facility] [employer]C HYPERTENSION CARE PLAN PROBLEM No Issa Dominguez, Medical Devices Implanted Type Area Lock Master Device Identifier Shelf Expiration Date Model / Serial / Lot Mesh Parietex Progrip Flat Sht [id number] - [id number] Implanted:Qty : 1 on 03/12/2023 by Elijah Del Valle MD at [facility] Mesh Right: Abdomen [employer] - COVID[employer] [id number] 11/04/2027 [id number] / / [id number] Mesh Parietex Progrip Flat Sht [id number] - [id number] Implanted:Qty : 1 on 03/12/2023 by Elijah Del Valle MD at [facility] Mesh Left: Abdomen [employer] - [employer] [id number] 06/05/2027 [id number] / / [id number] Procedures Procedure Name Priority Date/Time Associated Diagnosis Comments URINALYSIS MICROSCOPY ONLY Routine 01/25/2025 12:33 PM CDT Gross hematuria CYTOLOGY, NON GYNE Routine 01/25/2025 12 :[address] CT UROGRAPHY Routine 01/18/2025 2:00 PM CDT Gross hematuria POC CREATININE Routine 01/18/2025 1:27 PM CDT COLON CANCER SCREEN, STOOL DNA Routine 12/10/2024 11:00 AM CDT Screening for colon cancer OCCULT BLOOD IMMUNOASSAY, COLORECTAL SCREEN Routine 02/07/2023 10:02 AM CDT Screening for colon cancer from Last 3 Months or Most Recently Relevant to Health Maintenance Results * URINALYSIS MICROSCOPY ONLY (01/25/2025 12:33 PM CDT) WBC UA NONE SEEN < OR = 5 /HPF [facility] RBC UA NONE SEEN < OR = 2 /HPF [facility] EPITHELIAL CELLS, URINE NONE SEEN < OR = 5 /HPF [facility] BACTERIA UA NONE SEEN NONE SEEN /HPF [facility] [employer]Blossom [facility] HYALINE CAST NONE SEEN NONE SEEN /LPF [facility] URINE NOTE [facility] Comment: This urine was analyzed for the presence of WBC, RBC, bacteria, casts, and other formed elements. Only those elements seen were reported. Test Performed at: [place] [address] [place] [address] Annie Bowen Urine URINE SPECIMEN OBTAINED BY CLEAN CATCH PROCEDURE / Unknown 01/25/2025 12:33 PM CDT 01/26/2025 2:50 AM CDT us Nadine Rivera MD URINE ORDERABLES Final Re sult [facility] [phone] [place] [address] [place] [address] * CYTOLOGY, NON GYNE (01/25/2025 12:32 PM CDT) CASE REPORT Medical Cytology Report Case: [id number] Authorizing Provider: Nadine Rivera MD Collected: 01/25/2025 12:32 PM Ordering Location: [facility] at Received: 01/26/2025 07:26 AM the [facility] Medicine Pathologist: Gloria Hartley MD Specimen: Urine, clean catch 11:45 AM CDT [facility] FINAL DIAGNOSIS Urine: - Negative for high-grade urothelial carcinoma. See microscopic description. 11:45 AM CDT [facility] at 1145 CDT GROSS DESCRIPTION Received is a container labeled [place] and voided urine. It contains 70 mL of clear yellow fluid. One ThinPrep made. SK 11:45 AM CDT [facility] MICROSCOPIC DESCRIPTION The slide labeled [id number] and [place]. The ThinPrep slide shows scant benign urothelial cells and benign squamous epithelial cells. No high grade urothelial carcinoma is identified. No papillary clusters of urothelial cells are identified, which makes a low grade lesion unlikely. 11:45 AM CDT [facility] CLINICAL INFORMATION R31.0 - Gross hematuria [ICD-10-CM] 11:45 AM CDT [facility] COMMENT Special stain, immunohistochemical, and/or in situ hybridization results are interpreted with controls that demonstrate appropriate staining reactions. Note on use of immunohistochemistry reagents and in situ hybridization probes: These tests were developed and their performance characteristics determined by [facility] Department of Laboratory Medicine. It has not [...] part or completely in the following laboratories: [facility], CLIA #[id number] [address] [place] [address] [facility], CLIA #[id number] [address] [place] [address]. 11:45 AM CDT [facility] Body fluid URINE SPECIMEN OBTAINED BY CLEAN CATCH PROCEDURE / Unknown Collection / Unknown 01/25/2025 12:32 PM CDT 01/26/2025 7:26 AM CDT Nadine Rivera MD PATHOLOGY/CYTOLOGY ORDERA BLES Final Result [facility] CLIA# [id number] [address] [place] [address] * CT UROGRAPHY (01/18/2025 2:00 PM CDT) Anatomical Region Laterality Modality Abdomen, Pelvis Computed Tomogra phy 01/18/2025 1:31 PM CDT Impressions 01/18/2025 6:51 PM CDT IMPRESSION: 1. Similar appearing prostate gland enlargement which protrudes the bladder base. Multiple bilateral bladder diverticula noted. 2. No hydronephrosis or urinary tract calculus. No renal mass. Stable simple left renal cyst. 3. Colonic diverticulosis without diverticulitis. Small hepatic cysts. Small sliding hiatal hernia. Interval bilateral inguinal hernia repair. DICTATION LOCATION: Location 4 Narrative 01/18/2025 6:[address] UROGRAPHY WITH AND WITHOUT IV CONTRAST AND RECONSTRUCTIONS DATE: 01/18/2025 2:00 PM. CLINICAL INDICATION: Hematuria, gross/macroscopic. TECHNIQUE: Multiple contiguous axial images were obtained through the abdomen and pelvis before and after the uneventful administration of IV contrast material. Post processing coronal and sagittal reconstruction images were made from the axial images. The examination was performed with the adjustment of mA according to the patient size and/or the use of Iterative Reconstruction Technique. IV CONTRAST: 100 mL IV Isovue-300. BOWEL CONTRAST: None . COMPARISON: CT urography 06/04/2021. FINDINGS: LOWER CHEST: Scarring and/or subsegmental atelectasis within the lower lobes. LIVER:Small stable cyst within the segment 2. GALLBLADDER: No calcified gallstones. BILE DUCTS: No biliary dilatation. PANCREAS: Within normal limits. SPLEEN: Within normal limits. ADRENALS: Within normal limits. KIDNEYS/URETERS/BLADDER: Chronic bilateral mild perinephric stranding. Symmetric renal cortical enhancement without solid mass. Small bilateral peripelvic cysts. Stable simple appearing cyst from the superior posterior left kidney measuring 0.9 x 1.8 cm. No renal or ureteral calculus. Symmetric bilateral renal contrast excretion with no hydronephrosis. The prostate gland is enlarged, protruding the base of the bladder and having a similar appearance to the prior study. Bladder is incompletely distended and there are numerous bilateral bladder diverticula present, for example from the left side of the bladder measuring 4.3 x 2.8 cm and from the right side posteriorly at 1.4 x 2.8 cm. VESSELS: Atherosclerotic changes without abdominal aortic aneurysm or major vessel occlusion from the aorta. PERITONEUM/RETROPERITONEUM: No pneumoperitoneum, fluid collection, or lymphadenopathy. BOWEL: Small sliding hernia. Decompressed but unremarkable stomach. Several diverticula involve the duodenum which appear similar to the prior study. The appendix is not definitively identified. No bowel obstruction or mesenteric inflammatory changes. Diverticulosis of the descending and sigmoid colon without diverticulitis. ABDOMINAL WALL: Prior bilateral inguinal hernia repair. REPRODUCTIVE ORGANS: Prostate gland enlargement estimated to measure 7.7 x 5.0 x 6.2 cm in craniocaudal, AP, and transverse dimensions. No pelvic fluid collection or lymphadenopathy. BONES: Multilevel degenerative changes in the spine. The L5 segment is partially transitional on the left. Scattered small bone islands. Procedure Note Akhil Dean, DO - 01/18/2025 CT UROGRAPHY WITH AND WITHOUT IV CONTRAST AND RECONSTRUCTIONS DATE: 01/18/2025 2:00 PM. CLINICAL INDICATION: Hematuria, gross/macroscopic. TECHNIQUE: Multiple contiguous axial images were obtained through the abdomen and pelvis before and after the uneventful administration of IV contrast material. Post processing coronal and sagittal reconstruction images were made from the axial images. The examination was performed with the adjustment of mA according to the patient size and/or the use of Iterative Reconstruction Technique. IV CONTRAST: 100 mL IV Isovue-300. BOWEL CONTRAST: None . COMPARISON: CT urography 06/04/2021. FINDINGS: LOWER CHEST: Scarring and/or subsegmental atelectasis within the lower lobes. LIVER:Small stable cyst within the segment 2. GALLBLADDER: No calcified gallstones. BILE DUCTS: No biliary dilatation. PANCREAS: Within normal limits. SPLEEN: Within normal limits. ADRENALS: Within normal limits. KIDNEYS/URETERS/BLADDER: Chronic bilateral mild perinephric stranding. Symmetric renal cortical enhancement without solid mass. Small bilateral peripelvic cysts. Stable simple appearing cyst from the superior posterior left kidney measuring 0.9 x 1.8 cm. No renal or ureteral calculus. Symmetric bilateral renal contrast excretion with no hydronephrosis. The prostate gland is enlarged, protruding the base of the bladder and having a similar appearance to the prior study. Bladder is incompletely distended and there are numerous bilateral bladder diverticula present, for example from the left side of the bladder measuring 4.3 x 2.8 cm and from the right side posteriorly at 1.4 x 2.8 cm. VESSELS: Atherosclerotic changes without abdominal aortic aneurysm or major vessel occlusion from the aorta. PERITONEUM/RETROPERITONEUM: No pneumoperitoneum, fluid collection, or lymphadenopathy. BOWEL: Small sliding hernia. Decompressed but unremarkable stomach. Several diverticula involve the duodenum which appear similar to the prior study. The appendix is not definitively identified. No bowel obstruction or mesenteric inflammatory changes. Diverticulosis of the descending and sigmoid colon without diverticulitis. ABDOMINAL WALL: Prior bilateral inguinal hernia repair. REPRODUCTIVE ORGANS: Prostate gland enlargement estimated to measure 7.7 x 5.0 x 6.2 cm in craniocaudal, AP, and transverse dimensions. No pelvic fluid collection or lymphadenopathy. BONES: Multilevel degenerative changes in the spine. The L5 segment is partially transitional on the left. Scattered small bone islands. IMPRESSION: 1. Similar appearing prostate gland enlargement which protrudes the bladder base. Multiple bilateral bladder diverticula noted. 2. No hydronephrosis or urinary tract calculus. No renal mass. Stable simple left renal cyst. 3. Colonic diverticulosis without diverticulitis. Small hepatic cysts. Small sliding hiatal hernia. Interval bilateral inguinal hernia repair. DICTATION LOCATION: Location [address] ORDERABLES Final Res ult * POC CREATININE (01/18/2025 1:27 PM CDT) CREATININE POC 1.00 0.60 - 1.30 mg/dL 01/18/2025 1:[address] Comment:The GFR result is no t clinically significant on patients <18 or >70 years of age. GFR POC >60 mL/min/1.7 3 sq meter 01/18/2025 1:[address] Comment:eGFR calculated with 2020 CKD-EPI equation. Vegetarian diet, extremely high or low muscle mass, and may affect results. Cystatin C with Glomerular Filtration Rate is a suitable alternative for these patients. Blood, whole 01/18/2025 1:27 PM CDT 01/18/2025 1:29 PM CDT us Nadine Rivera MD POINT OF CARE TESTING Fin al Result [facility] [address] CLIA# [id number] [address] [place] [address] * COLON CANCER SCREEN, STOOL DNA (12/10/2024 11:00 AM CDT) COLOGUARD RESULT Negative Negative [facility] [employer] Comment: The Cologuard Plus (TM) test was performed on this specimen. NEGATIVE TEST RESULT. A negative (normal) Cologuard Plus result means the patient has a [id number] chance of having colorectal cancer (CRC) or advanced precancer (polyps or lesions that could become cancer). Negative is the normal value (reference range) for this assay. Guidelines recommend screening again 3 years after a negative Cologuard Plus result. Continued screening increases the chance of finding CRC early or preventing it entirely. A clinical validation study showed the Cologuard Plus test is effective at ruling out CRC. Out of every 10,000 patients testing negative, approximately 2 will be falsely reassured that they do not have CRC, and out of every 100 patients testing negative, approximately 7 patients will be falsely reassured they do not have advanced precancer. TEST DESCRIPTION: The Cologuard Plus test is a multi-target stool DNA (mt-sDNA) test that analyzes DNA and hemoglobin biomarkers in stool. It uses a proprietary algorithm to qualitatively detect CRC and advanced precancer. It is FDA-approved and indicated for use in adults 45 years or older at average risk for CRC. A positive (abnormal) result should be followed by a colonoscopy. Patients with a negative (normal) result should screen again in 3 years. False positive and false negative results may occur. The USPSTF recommends the Cologuard test as a CRC screening option. Their modeling estimates that screening with the test every 3 years from ages 45-85 could prevent up to 73% of CRC and avoid up to 85% of CRC deaths. A 18,911-patient clinical trial found the Cologuard Plus test effectively detects CRC and precancer. The study found the test was 95% sensitive for CRC, 43% sensitive for advanced precancer, and had a 91% specificity (Cologuard Plus Clinician Brochure. [employer]. [place], [place].). Visit [email or web address].[email or web address] for more test information, references, warnings, and precautions. Stool STOOL SPECIMEN / Unknown 12/10/2024 11:00 AM CDT 12/11/2024 6:35 PM CDT Issa Dominguez DO BODY FLUIDS AND STOOLS Fin al Result [facility] CLIA # [id number] [address] , [address] [place] [address] * OCCULT BLOOD IMMUNOASSAY, COLORECTAL SCREEN (02/07/2023 10:02 AM CDT) FECAL GLOBIN SEE NOTE [facility] Comment: FECAL GLOBIN BY IMMUNOCHEMISTRY Micro Number: [id number] Test Status: Final Specimen Source: Stool Specimen Quality: Adequate Fecal Globin: Not Detected NO COLLECTION DATE RECEIVED. WE HAVE USED THE DATE THE SPECIMEN WAS RECEIVED BY THIS LABORATORY THE COLLECTION DATE. IF THIS IS INCORRECT, PLEASE CONTACT CLIENT SERVICES. PHONE NUMBER: [phone] FASTING: UNKNOWN Test Performed at: [facility] [address] [place] [address] Annie Bowen MD Stool STOOL SPECIMEN / Unknown 02/07/2023 5:45 AM CDT Krystin Newsome MD BODY FLUIDS AND STOOLS Final Result Performing Organization Address [facility] Co de Phone Number [facility] [phone] [address] [place] [address] from Last 3 Months or Most Recently Relevant to Health Maintenance Additional Health Concerns Active Problems Noted Date Diagnosed Date [employer] MYC HYPERTENSION CARE PLAN PROBLEM 5 Insurance MEDICARE PART A AND B [employer] MEDICARE SUPP AESSI RX [facility] Medicare Part D Advance Directives For more information, please contact: [phone] * Full Code (Latest Code Status on File) Date Activated Date Inactivated Comments 03/12/2023 1:31 PM 03/12/2023 8:24 PM * Full Code Date Activated Date Inactivated Comments 03/12/2023 11:29 AM 03/12/2023 1:30 PM * Full Code Date Activated Date Inactivated Comments 03/12/2023 11:23 AM 03/12/2023 11:29 AM Care Teams Engine Watchman Relationship Specialty [place] [address] [phone] PCP - General Family Practice 11/11/24
== END 2025-01-26 13:05 | disposition home or self-care (01) ==
DX: S62.637A Displaced fracture of distal phalanx of left little finger, initial encounter for closed fracture (principal); X58.XXXA Exposure to other specified factors, initial encounter
CPT/HCPCS: 73140

== ENCOUNTER 2025-01-28 18:08 | Emergency (ER) | payer MEDICARE, SELFPAY ==
--- NOTE | ~2025-01-28 | XR_ITS ---
EXAMINATION: XR chest 2V DATE: 01/28/2025 19:08 INDICATION: Fever of unknown origin. Difficult urination. TECHNIQUE: PA and lateral views of the chest were obtained. COMPARISON: None FINDINGS: The lungs are clear with no focal airspace opacities, pulmonary edema, pleural effusion or pneumothor ax. The cardiomediastinal silhouette is normal. Mild anterior wedging of a lower thoracic vertebral b [place], likely T11. IMPRESSION: 1. No acute cardiopulmonary disease. Reviewed, dictated and finalized at location A.
--- NOTE | ~2025-01-28 | CT_ITS ---
EXAMINATION: CT abdomen pelvis w con DATE: 01/28/2025 23:47 INDICATION: Recent urological instrumentation loosening with leukocytosis and fever TECHNIQUE: Computed tomography (CT) of the abdomen and pelvis was performed with 100 mL Omnipaque-350 intravenous contrast. Automated exposure control and iterative reconstruction technique were employe d. The dose-length product was 772.22 mGy-cm. COMPARISON: None FINDINGS: There are bands of discoid atelectasis in the bilateral lower lobes. Heart size is normal. No pericar dial or pleural effusion. Small sliding-type hiatal hernia. Liver, gallbladder, spleen, pancreas, laurita ateral adrenal glands and kidneys are normal. There is mild bilateral perinephric stranding, left gre ater than right. There or 4 bladder diverticula likely related to chronic outlet obstruction given th e enlarged prostate which measures 7.6 x 6.3 x 5.1 cm with nodular impression upon the base of the bl adder. Moderate diverticulosis along the descending and sigmoid colon without adjacent from trace str anding to suggest diverticular colitis. No bowel obstruction. The appendix is not visualized. No reyna cecal inflammatory change to suggest acute appendicitis. No free intraperitoneal gas or fluid. No pat hologically enlarged abdominal or pelvic lymphadenopathy. Mild lumbar levocurvature with moderate to severe spondylosis.. IMPRESSION: 1. No acute intra-abdominal/pelvic process. 2. 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 3. Small sliding-type hiatal hernia. Reviewed, dictated and finalized at location A.
--- OUTSIDE RECORDS SUMMARY | 2025-01-28 18:11 | XMS_ITS | Encounter Summary ---
Author Organization [facility] Address [address] [place] [address] Care Team Providers Care Speech Pathology Teacher Name Role Phone Unavailable Primary Care Provider Unavailabl e Encounter Details Date Type Department Care Team (Late st Contact Info) Description 11/15/2024 Lab Requisition [facility] - DermPath Lab [address] [place] [id number] Shae Askew MD [address] [place] [address] Neoplasm of uncertain behavior of skin Social [...] AM CDT) Case Report Dermatopathology Report Case: [id number] Authorizing Provider: Shae Askew MD Collected: 11/15/2024 09:37 AM Ordering Location: [facility] - Received: 11/16/2024 07:59 AM DermPath [...] characteristic determined by the Dermatopathology Laboratory at [facility], directed by Dr. Hermilo Martin. These tests need not be, and therefore are not, approved by the [place] Food and Drug Administration. The tests are used for clinical purposes. Billing Codes Specimen Charges Stain Charges 79395 1 1:26 PM CDT DERMATOPATHOLOGY LABORATORY Embedded Images 1:26 PM CDT DERMATOPATHOLOGY LABORATORY Pathology/Cytolo gy TISSUE SPECIMEN FROM SKIN / Unknown 11/15/2024 9:37 AM CDT 11/16/2024 7:59 AM CDT us Shae Askew MD LAB - PATHOLOGY/CYTOLOGY ORDERAB LES Final Result DERMATOPATHOLOGY LABORATORY [facility] - Department of Dermatology [address], [address] Floor [address] [phone] documented in this encounter Visit Diagnoses Diagnosis Neoplasm of uncertain behavior of skin documented in this encounter
--- OUTSIDE RECORDS SUMMARY | 2025-01-28 18:11 | XMS_ITS | Clinical Summary ---
Author Organization [facility] Address [address] [place] [address] Phone Care Team Providers Care Pharmacy Coordinator Name Role Phone Krystin Newsome MD Primary [...] 81.6 kg (180 lb) 06/24/2023 1:19 PM CLAM PICKER Height 180.3 cm (5' 11) 02/02/2023 12:12 [...] Insurance MEDICARE [employer] SENIOR SUPPLEMENTAL Care Teams Pharmacy Coordinator Relationship Specialty [place] [id number] [phone] PCP - General Family Medicine 09/04/22
--- OUTSIDE RECORDS SUMMARY | 2025-01-28 18:11 | XMS_ITS | Clinical Summary ---
Author Organization [facility] Address [address] [place] [address] Care Team Providers Care Employee Relations Administrator Name Role Phone Issa Dominguez DO Primary Care Provider +1- [phone] Allergies Active Allergy Reactions Criticality Noted Date [...] Description 01/25/2025 12:40 PM CDT Procedure visit [facility] the [place] [address] [facility] [address] [place] [address] Nadine Rivera MD Gross hematuria (Primary Dx); BPH with obstruction/lower urinary tract symptoms; Prostate cancer screening 01/18/2025 1:11 PM CDT - 01/18/2025 11:59 PM CDT Hospital Encounter [facility] [address] [address] Nadine Rivera MD Discharge Disposition: Home or Self Care 01/09/2025 Orders Only [facility] at the [facility] [address] [place] [address] Nadine Rivera MD Gross hematuria (Primary Dx) 12/21/2024 External Device Data STL ABSTRACTION Provider, Abstract 12/17/2024 Results Follow-Up [facility] [address] [place] [address] [facility] [place] [address] Issa Dominguez DO COLON CANCER SCREEN, STOOL DNA 11/30/2024 External Device Data STL ABSTRACTION Provider, Abstract 11/25/2024 External Device Data STL ABSTRACTION Provider, Abstract 11/24/2024 External Device Data STL ABSTRACTION Provider, Abstract 11/23/2024 External Device Data STL ABSTRACTION Provider, Abstract 11/11/2024 1:30 PM CDT Office Visit [facility] [address] [place] [address] [place] [phone] Issa Dominguez DO Benign hypertension (Primary Dx); Pure hypercholesterolemia; Benign prostatic hyperplasia with lower urinary tract symptoms, symptom details unspecified; Screening for colon cancer; Primary osteoarthritis involving multiple joints from Last 3 Months Family History Medical History Relation Name Comments Melanoma Brother 2 Tono [place]av[place] Heart Disease Father Slade Cancer Maternal Grandfather Fritz stomach cancer Cancer Mother Qing melanoma Heart Disease Paternal Grandfather Speed Asthma Sister Keiry Cancer Sister Keiry melanoma Heart Disease Sister Keiry Diabetes Neg Hx Relation Name Status Comments Brother 1 Alive Brother 2 Tono [place]av[place] Alive Father Slade Maternal Grandfather Fritz Mother Qing Paternal Grandfather Speed Sister Keiry Alive Social History Tobacco Use [...] CDT Respiratory Rate 18 05/24/2024 10:51 AM CITY CARRIER ASSISTANT Oxygen Saturation 97% 11/11/2024 1:11 PM CDT Inhaled Oxygen Concentration - - Weight 83.5 kg (184 lb) 01/25/2025 12:04 PM CDT Height 180.3 cm (5' 11) 11/11/2024 1:11 PM CDT Body Mass Index 25.66 11/11/2024 1:11 PM CDT Plan of Treatment Upcoming Encounters Date Type Department Care Team (Late st Contact Info) Description 05/23/2025 10:45 AM CITY CARRIER ASSISTANT Office Visit [facility] [address] [place] [address] Nadine Rivera MD [address] [place] [address] 05/23/2025 1:30 PM CITY CARRIER ASSISTANT Office Visit [facility] [address] [place] [address] [place] [address] [place] [address] [facility] [place] [address] Health Maintenance Due Date Last Done [...] CARE PLAN PROBLEM No Issa Dominguez DO Medical Devices Implanted Type Area Baker Chef Device Identifier Shelf Expiration Date Model / Serial / Lot Mesh Parietex Progrip Flat Sht [id number] - [id number] Implanted:Qty : 1 on 03/12/2023 by Elijah Del Valle MD at [facility] Mesh Right: Abdomen [employer] - COVID[employer]EN [id number] 11/04/2027 [id number] / / [id number] Mesh Parietex Progrip Flat Sht [id number] - [id number] Implanted:Qty : 1 on 03/12/2023 by Elijah Del Valle MD at [facility] Mesh Left: Abdomen [employer] - [employer] [id number] 06/05/2027 [id number] / / [id number] Procedures Procedure Name Priority Date/Time Associated Diagnosis Comments URINALYSIS MICROSCOPY ONLY Routine 01/25/2025 12:33 PM CDT Gross hematuria URINE CULTURE Routine 01/25/2025 12:33 PM CDT Gross hematuria [...] NONE SEEN < OR = 5 /HPF Jonny IrelandVonnieBlossom arnett Stephen RBC UA NONE SEEN < OR = 2 /HPF Jonny BekaVonnieBlossom hope Mitchell EPITHELIAL CELLS, URINE NONE SEEN < OR = 5 /HPF Jonny BekaVonnieBlossom arnett Stephen BACTERIA UA NONE SEEN NONE SEEN /HPF Jonny IrelandVonnieBlossom arnett Stephen HYALINE CAST NONE SEEN NONE SEEN /LPF Jonny Mitchell URINE NOTE Jonny IrelandVonnieBlossom arnett Stephen Comment: This urine was analyzed for the presence of WBC, RBC, bacteria, casts, and other formed elements. Only those elements seen were reported. Test Performed at: [place] [address] [address] [place] [id number] [facility] Urine URINE SPECIMEN OBTAINED BY CLEAN CATCH PROCEDURE / Unknown 01/25/2025 12:33 PM CDT 01/26/2025 2:50 AM CDT us Nadine Rivera MD URINE ORDERABLES Final Re sult [facility] [phone] [place] [address] [address] [place] [id number] * URINE CULTURE (01/25/2025 12:33 PM CDT) URINE CULTURE SEE NOTE Jonny IrelandBlossom Mitchell Comment: CULTURE, URINE, ROUTINE Micro Number: [id number] Test Status: Final Specimen Source: Urine, clean catch Specimen Quality: Adequate Result: No Growth Test Performed at: [place] [address] [address] [place] [id number] [facility] Urine URINE SPECIMEN OBTAINED BY CLEAN CATCH PROCEDURE / Unknown 01/25/2025 12:33 PM CDT 01/26/2025 2:50 AM CDT us Nadine Rivera MD MICROBIOLOGY - GENERAL OR DERABLES Final Result [facility] [phone] [place] [address] [address] [place] [id number] * CYTOLOGY, NON GYNE (01/25/2025 12:32 PM CDT) CASE REPORT Medical Cytology Report Case: [id number] Authorizing Provider: Nadine Rivera MD Collected: 01/25/2025 12:32 PM Ordering Location: [facility] Received: 01/26/2025 07:26 AM the [facility] Pathologist: Gloria Hartley MD Specimen: Urine, clean catch 11:45 AM T [facility] FINAL DIAGNOSIS Urine: - Negative for high-grade urothelial carcinoma. See microscopic description. 11:45 AM T [facility] at 1145 CDT GROSS DESCRIPTION Received is a container labeled [place] and voided urine. It contains 70 mL of clear yellow fluid. One ThinPrep made. SK 11:45 AM T [facility] MICROSCOPIC DESCRIPTION The slide labeled [id number] and [place]. The ThinPrep slide shows scant benign urothelial cells and benign squamous epithelial cells. No high grade urothelial carcinoma is identified. No papillary clusters of urothelial cells are identified, which makes a low grade lesion unlikely. 11:45 AM T [facility] CLINICAL INFORMATION R31.0 - Gross hematuria [ICD-10-CM] 11:45 AM T [facility] COMMENT Special stain, immunohistochemical, and/or in situ hybridization results are interpreted with controls that demonstrate appropriate staining reactions. Note on use of immunohistochemistry reagents and in situ hybridization probes: These tests were developed and their performance characteristics determined by [facility], Department of Laboratory Medicine. It has not [...] part or completely in the following laboratories: [facility], [place] #[id number] [address] [place] [address] at [place], CLIA #[id number] [address] [facility] [place] [address]. 11:45 AM CDT [facility] LABORATORY [facility] Body fluid URINE SPECIMEN OBTAINED BY CLEAN CATCH PROCEDURE / Unknown Collection / Unknown 01/25/2025 12:32 PM CDT 01/26/2025 7:26 AM CDT Nadine Rivera MD PATHOLOGY/CYTOLOGY ORDERA BLES Final Result [facility] CLIA# [id number] [address] [place] [address] * CT UROGRAPHY (01/18/2025 2:00 PM CDT) [...] Scattered small bone islands. Procedure Note Akhil Dean DO - 01/18/2025 CT UROGRAPHY WITH AND [...] PM CDT [facility] [address] Comment:The GFR result is no t clinically [...] 1:27 PM CDT 01/18/2025 1:29 PM CDT Nadine Rivera MD POINT OF CARE TESTING Fin al Result [facility] [address] CLIA# [id number] [address] [place] [address] * COLON CANCER SCREEN, STOOL DNA (12/10/2024 11:00 AM CDT) COLOGUARD RESULT Negative Negative [facility] Comment: The Cologuard Plus (TM) test was performed on this specimen. NEGATIVE TEST RESULT. A negative (normal) Cologuard Plus result means the patient has a [id number] chance of having colorectal cancer (CRC) or [...] a 91% specificity (Cologuard Plus Clinician Brochure. [employer]. [place], [place] Visit [email or web address]-[email or web address] for more test information, references, warnings, and precautions. Stool STOOL SPECIMEN / Unknown 12/10/2024 11:00 AM CDT 12/11/2024 6:35 PM CDT Issa Dominguez DO BODY FLUIDS AND STOOLS Fin al Result [facility] CLIA # [id number] [address] , [address] [place] [address] * OCCULT BLOOD IMMUNOASSAY, COLORECTAL SCREEN (02/07/2023 10:02 AM CDT) FECAL GLOBIN SEE NOTE [facility] Comment: FECAL GLOBIN BY IMMUNOCHEMISTRY Micro Number: [id number] Test Status: Final Specimen Source: Stool Specimen Quality: Adequate Fecal Globin: Not Detected NO COLLECTION DATE RECEIVED. WE HAVE USED THE DATE THE SPECIMEN WAS RECEIVED BY THIS LABORATORY THE COLLECTION DATE. IF THIS IS INCORRECT, PLEASE CONTACT CLIENT SERVICES. PHONE NUMBER: [phone] FASTING: UNKNOWN Test Performed at: [facility] [address] [phone] Annie Bowen MD Stool STOOL SPECIMEN / Unknown 02/07/2023 5:45 AM CDT Krystin Newsome MD BODY FLUIDS AND STOOLS Final Result [facility] [phone] [facility] [address] [phone] from Last 3 Months or Most Recently Relevant to Health Maintenance Additional Health Concerns Active Problems Noted Date Diagnosed Date SHAMEKA MYC HYPERTENSION CARE PLAN PROBLEM 5 Insurance MEDICARE PART A AND B AETNA MEDICARE SUPP AESSI RX [facility] Medicare Part D Advance Directives For more information, please contact: [phone] * Full Code (Latest Code Status on File) Date Activated Date Inactivated Comments 03/12/2023 1:31 PM 03/12/2023 8:24 PM * Full Code Date Activated Date Inactivated Comments 03/12/2023 11:29 AM 03/12/2023 1:30 PM * Full Code Date Activated Date Inactivated Comments 03/12/2023 11:23 AM 03/12/2023 11:29 AM Care Teams Employee Relations Administrator Relationship Specialty [place] [address] [facility] [place] [address] PCP - General Family Practice 11/11/24
--- OUTSIDE RECORDS SUMMARY | 2025-01-28 18:11 | XMS_ITS | Encounter Summary ---
Author Organization [facility] Address [address] [place] [address] Care Team Providers Care Rn Surgical Pcu Name Role Phone Issa Dominguez DO Primary Care Provider +1- [phone] Encounter Details Date Type Department Care Team (Late st Contact Info) Description 12/17/2024 Results Follow-Up [facility] Primary Care [address] [place] [address] [place] [address] [place] [address] [place] [address] COLON CANCER SCREEN, STOOL DNA [...] st Contact Info) Description 05/23/2025 10:45 AM FIRER GLOST KILN Office Visit [facility] Urology at the [facility] Medicine [address] [place] [address] Nadine Rivera MD [address] [place] [address] 05/23/2025 1:30 PM FIRER GLOST KILN Office Visit [facility] Care [address] [place] [address] [place] [address] [place] [address] documented as of this encounter Goals [...] documented as of this encounter Care Teams Rn Surgical Pcu Relationship Specialty [place] [address] [place] [address] PCP - General Family Practice 11/11/24 documented as of this encounter
--- OUTSIDE RECORDS SUMMARY | 2025-01-28 18:11 | XMS_ITS | Clinical Summary ---
Author Organization [facility] Address [address] [place] [address] Care Team Providers Care Agency Operator Name Role Phone Unavailable Primary Care Provider Unavailabl e Source Comments [facility],non-owned Affiliates and Associated Physician Practices is amultiple site organization consisting of ambulatory clinics and hospital sitesin [place], [place], [place] and [place]. This disclosure is being madepursuant to the Care Everywhere program and may not contain all information available regarding this patient. Last updated 18.[facility] Encounters Date Type Department Care Team Description 11/15/2024 Lab Requisition [facility] - DermPath Lab [address] [place] [address] Shae Askew MD Neoplasm of [...] AM CDT) Case Report Dermatopathology Report Case: [id number] Authorizing Provider: Shae Askew MD Collected: 11/15/2024 09:37 AM Ordering Location: [facility] - Received: 11/16/2024 07:59 AM [...] characteristic determined by the Dermatopathology Laboratory at [facility], directed by Dr. Hermilo Martin. These tests need not be, and therefore are not, approved by the [place] Food and Drug Administration. The tests are used for clinical purposes. Billing Codes Specimen Charges Stain Charges 29019 1 5 1:26 PM CDT DERMATOPATHOLOGY LABORATORY Embedded Images 1:26 PM CDT DERMATOPATHOLOGY LABORATORY Pathology/Cytolo gy TISSUE SPECIMEN FROM SKIN / Unknown 11/15/2024 9:37 AM CDT 11/16/2024 7:59 AM CDT Shae Askew MD LAB - PATHOLOGY/CYTOLOGY ORDERAB LES Final Result DERMATOPATHOLOGY LABORATORY [facility] - Department of Dermatology [facility] Medicine [address] [place] [address], [address] Floor [address] [phone] from Last 3 Months [place] [address]
[2025-01-28 18:24] VITALS: BP 156/87; PULSE 94; RESP 15; TEMP 37.1; O2SAT 96
--- NOTE | 2025-01-28 18:28 | ECG_ITS ---
Test Date: 2025-01-28 19:17:14 Measurements Intervals [place] Rate: 82 P: 35 CO: 180 QRS: 72 QRSD: 94 T: 30 QT: 355 QTc: 416 Interpretive Statements SINUS RHYTHM No previous ECG available for comparison Electronically Signed On 01-29-2025 18:49:48 CDT by Jacinto Schreiber M.D.
--- NOTE | 2025-01-28 18:51 | ED.FEVER ---
HPI - Fever General Chief Complaint: Fever <Skyla Mendieta APRN - Last Filed: 01/28/25 18:54> Stated Complaint: fever, chills <Skyla Mendieta APRN - Last Filed: 01/28/25 18:54> Time Seen by Provider: 01/28/25 18:30 <Skyla Mendieta APRN - Last Filed: 01/28/25 18:54> Focused HPI: Patient is a 74-year-old male presents to the ER with a fever and chills following at a urology procedure 3 days ago. He reports he had a scope up my penis on Friday. Patient reports he has had increased urination since then. He reports his symptoms started yesterday with chills and fevers. Patient denies any significant pain. He reports he called his urologist earlier today who advised him to come into the ER for further evaluation. Patient denies any significant medical history relevant to this ER visit. GENERAL: Well-appearing, well-nourished, and in no acute distress. HEAD: Normocephalic, atraumatic. CHEST: Clear to auscultation. ?No respiratory distress. HEART: Regular rate and rhythm.? NEURO: ?Alert and oriented x3. Patient screened in triage and initial orders placed.? ?Additional care and disposition to be based upon?diagnostic testing and treatment. <Skyla Mendieta APRN - Last Filed: 01/28/25 18:54> History of Present Illness HPI Narrative: Agree with the above with the following additions/corrections: Patient recently and was described as cystoscopy with his urologist Dr Rivera through [facility] 01/25. He had fever and chills last night, maximum 101.3. Has had increased urinary frequency. Denies any abdominal pain but has been having dysuria. Denies flank pain. Took ibuprofen last night and this morning. Not currently on antibiotics. Has been on tamsulosin and finasteride. Notes he has an enlarged prostate. The cystoscopy was for bleeding. Noted his symptoms to urologist and received word from his office that he was advised to go to the ED. History of back issues (some vertebrae fused at ). Patient notes that he walks a lot, frequently >10,000 steps per day, which helps his back. Stays active. Uses a cane. Currently undergoing physical therapy for a broken left 5th digit. Also helps his daughter who he descrbes as an invalid with home projects. He [place] in [place]. Has a new PCP (previous one retired). No antibiotic allergies. <eRnetta Ledezma MD - Last Filed: 01/30/25 09:21> Related Data Allergies/Adverse Reactions: Allergies Allergy/AdvReac Type Severity Reaction Status Date / Time peanut Allergy Anaphylaxis Verified 01/28/25 18:29 venom-wasp Allergy Swelling Verified 01/28/25 18:29 <Skyla Mendieta APRN - Last Filed: 01/28/25 18:54> PMFSH Past Medical History Medical History: Medical History Finger fracture, left 5th digit Enlarged prostate Urologist Alexia Otto History of chronic back pain Fusion of spine (vertebra), congenital <Skyla Mendieta APRN - Last Filed: 01/28/25 18:54> Surgical History Surgical History: Surgical History Status post cystoscopy 01/25/25 <Skyla Mendieta APRN - Last Filed: 01/28/25 18:54> Family History Family History: Family History Daughter Invalid <Skyla Mendieta APRN - Last Filed: 01/28/25 18:54> Social History Social History: Social History (Updated 01/30/25 @ 09:17 by Renetta Ledezma MD) Social History: [place] in [place] Ambulates with a cane <Skyla Mendieta APRN - Last Filed: 01/28/25 18:54> Exam Narrative: GENERAL: Well-appearing, well-nourished, and in no acute distress. HEAD: Normocephalic, atraumatic. EYES: Non injected, non icteric ENT: Nares clear, no rhinorrhea or epistaxis. Gross auditory acuity intact. NECK: Supple. No meningismus. CHEST: Speaking in full sentences. No respiratory distress. HEART: Regular rate and rhythm. . ABDOMEN: Soft, nondistended. No rigidity or guarding. Not peritoneal. No tenderness to palpation throughout EXTREMITIES: Normal range of motion. No lower extremity edema. Ecchymosis of left 5th digit SKIN: Warm, dry, no rash. NEURO: No focal deficits. Alert and oriented. Answering questions. Following commands. Normal speech without aphasia or dysarthria. PSYCH: Normal mood and affect. <Renetta Ledezma MD - Last Filed: 01/30/25 09:21> Course Vital Signs Vital signs: Vital Signs Temperature 98.8 F 01/28/25 18:24 Pulse Rate 94 01/28/25 18:24 Respiratory Rate 15 01/28/25 18:24 Blood Pressure 156/87 H 01/28/25 18:24 Pulse Oximetry 96 01/28/25 18:24 Oxygen Delivery Room Air 01/28/25 18:24 Temperature 98.1 F 01/28/25 21:08 Pulse Rate 85 01/29/25 01:01 Respiratory Rate 18 01/29/25 01:01 Blood Pressure 130/68 01/29/25 01:01 Pulse Oximetry 96 01/29/25 01:01 Oxygen Delivery Room Air 01/28/25 18:24 <Skyla Mendieta, STRUCTURAL TECHNICIAN - Last Filed: 01/28/25 18:54> Vital Signs Temperature 98.8 F 01/28/25 18:24 Pulse Rate 94 01/28/25 18:24 Respiratory Rate 15 01/28/25 18:24 Blood Pressure 156/87 H 01/28/25 18:24 Pulse Oximetry 96 01/28/25 18:24 Oxygen Delivery Room Air 01/28/25 18:24 Temperature 98.1 F 01/28/25 21:08 Pulse Rate 85 01/29/25 01:01 Respiratory Rate 18 01/29/25 01:01 Blood Pressure 130/68 01/29/25 01:01 Pulse Oximetry 96 01/29/25 01:01 Oxygen Delivery Room Air 01/28/25 18:24 <Renetta Ledezma MD - Last Filed: 01/30/25 09:21> MDM - Fever MDM Narrative Medical decision making narrative: 74-year-old male presents with fevers and chills as well as dysuria and increased urinary frequency. Recently underwent cystoscopy and 01/25/2025 and given his symptoms a member of his urologist's (Alexia Otto) clinic/staff advised he presented the emergency department for evaluation. In the emergency department he is afebrile with vital signs notable for hypertension. CRP elevated. Lactic acid normal. Leukocytosis and normocytic anemia with no prior for comparison. Normal renal function. Given the degree leukocytosis, will proceed with CT imaging especially given recent instrumentation. Urine appears markedly infected. No previous culture to guide therapy. Ceftriaxone ordered. Patient also given pyridium. Discharged home with prescriptions for cephalosporin as well as pyridium. Advised follow-up with urologist. Otherwise stable for discharge. <Renetta Ledezma MD - Last Filed: 01/30/25 09:21> Differential Diagnosis Differential diagnosis: Likely pyelonephritis (UTI/cystitis; considered perforation/post cystoscopy complication) and sepsis <Renetta Ledezma MD - Last Filed: 01/30/25 09:21> Lab Data Attestation: I reviewed the patient's lab results. <Renetta Ledezma MD - Last Filed: 01/30/25 09:21> Result diagrams: 01/28/25 19:24 01/28/25 19:24 <Skyla Mendieta APRN - Last Filed: 01/28/25 18:54> Labs: Lab Results 01/28/25 01/28/25 Range/Units 19:24 19:55 WBC 18.6 H (4.5-10.0) K/mm3 RBC 4.46 L (4.6-6.20) M/mm3 Hgb 13.2 L (14.0-18.0) g/dL Hct 40.4 L (42.0-52.0) % MCV 90.6 (80-100) fl MCH 29.6 (26-34) pg MCHC 32.7 (32-36) g/dl RDW 15.2 H (11.5-14.5) % Plt Count 245 (150-375) k/mm3 MPV 8.7 (7.4-10.4) fl Immature Gran % (Auto) 0.5 (0-0.5) % Neut % (Auto) 82.0 H (45.5-73.1) % Lymph % (Auto) 8.8 L (18.3-44.2) % [place] % (Auto) 7.8 (2.6-8.5) % Eos % (Auto) 0.6 (0-4.4) % Baso % (Auto) 0.3 (0.2-1.2) % Lymph # (Auto) 1.63 (0.9-3.2) K/mm3 [place] # (Auto) 1.4 H (0.1-0.6) K/mm3 Eos # (Auto) 0.1 (0-0.3) K/mm3 Baso # (Auto) 0.1 (0.0-0.1) K/mm3 Abs Immat Gran (auto) 0.09 H (0.00-0.031) K/mm3 Absolute Neuts (auto) 15.2 H (1.3-6.7) K/mm3 Absolute Nucleated RBC 0.000 (0.0-0.012) K/mm3 Nucleated RBC % 0.0 (0.0-0.2) % PT 13.0 (11.1-14.7) Seconds INR 1.0 APTT 27.4 (22.3-36.8) Seconds Sodium 134 L (137-145) mmol/L Potassium 4.2 (3.4-5.0) mmol/L Chloride 102 (98-107) mmol/L Carbon Dioxide 23 (22-30) mmol/L Anion Gap 9 (4-12) mmol/L BUN 21 H (9-20) mg/dL Creatinine 1.00 (0.7-1.3) mg/dL Estim Creat Clear Calc 62 ml/min Estimated GFR > 60 (59 - ) Glucose 108 (65-110) mg/dL Lactic Acid 0.7 (0.7-2.0) mmol/L Calcium 8.4 (8.4-10.2) mg/dL Total Bilirubin 0.5 (0.2-1.3) mg/dL AST 25 (17-59) U/L ALT 14 (6-50) U/L Alkaline Phosphatase 65 (38-126) U/L C-Reactive Protein 14.3 H (<1.0) mg/dL Total Protein 7.2 (6.3-8.2) g/dL Albumin 4.0 (3.5-5.1) g/dL Urine Color Yellow (Yellow) Urine Appearance Cloudy H (Clear) Urine pH 6.0 (5.0-9.0) Ur Specific [place] 1.020 (1.001-1.035) Urine Protein 1+ H (Negative) mg/dL Urine Glucose (UA) Negative (Negative) mg/dL Urine Ketones Trace H (Negative) mg/dL Ur Blood (Man) Trace (Negative) Urine Nitrate Positive H (Negative) Urine Bilirubin Negative (Negative) Urine Urobilinogen 1.0 (<2.0) mg/dL Leukocyte Esterase Rfl 3+ H (Negative) JOHN/UL Urine RBC 0-2 (0-2) /hpf Urine WBC >100 H (0-3) /hpf Ur Squamous Epith Cells None seen (Few) /hpf Urine Bacteria 4+ H /hpf Urine Casts 0-2 <Skyla Mendieta, STRUCTURAL TECHNICIAN - Last Filed: 01/28/25 18:54> Lab Results 01/28/25 01/28/25 Range/Units 19:24 19:55 WBC 18.6 H (4.5-10.0) K/mm3 RBC 4.46 L (4.6-6.20) M/mm3 Hgb 13.2 L (14.0-18.0) g/dL Hct 40.4 L (42.0-52.0) % MCV 90.6 (80-100) fl MCH 29.6 (26-34) pg MCHC 32.7 (32-36) g/dl RDW 15.2 H (11.5-14.5) % Plt Count 245 (150-375) k/mm3 MPV 8.7 (7.4-10.4) fl Immature Gran % (Auto) 0.5 (0-0.5) % Neut % (Auto) 82.0 H (45.5-73.1) % Lymph % (Auto) 8.8 L (18.3-44.2) % [place] % (Auto) 7.8 (2.6-8.5) % Eos % (Auto) 0.6 (0-4.4) % Baso % (Auto) 0.3 (0.2-1.2) % Lymph # (Auto) 1.63 (0.9-3.2) K/mm3 [place] # (Auto) 1.4 H (0.1-0.6) K/mm3 Eos # (Auto) 0.1 (0-0.3) K/mm3 Baso # (Auto) 0.1 (0.0-0.1) K/mm3 Abs Immat Gran (auto) 0.09 H (0.00-0.031) K/mm3 Absolute Neuts (auto) 15.2 H (1.3-6.7) K/mm3 Absolute Nucleated RBC 0.000 (0.0-0.012) K/mm3 Nucleated RBC % 0.0 (0.0-0.2) % PT 13.0 (11.1-14.7) Seconds INR 1.0 APTT 27.4 (22.3-36.8) Seconds Sodium 134 L (137-145) mmol/L Potassium 4.2 (3.4-5.0) mmol/L Chloride 102 (98-107) mmol/L Carbon Dioxide 23 (22-30) mmol/L Anion Gap 9 (4-12) mmol/L BUN 21 H (9-20) mg/dL Creatinine 1.00 (0.7-1.3) mg/dL Estim Creat Clear Calc 62 ml/min Estimated GFR > 60 (59 - ) Glucose 108 (65-110) mg/dL Lactic Acid 0.7 (0.7-2.0) mmol/L Calcium 8.4 (8.4-10.2) mg/dL Total Bilirubin 0.5 (0.2-1.3) mg/dL AST 25 (17-59) U/L ALT 14 (6-50) U/L Alkaline Phosphatase 65 (38-126) U/L C-Reactive Protein 14.3 H (<1.0) mg/dL Total Protein 7.2 (6.3-8.2) g/dL Albumin 4.0 (3.5-5.1) g/dL Urine Color Yellow (Yellow) Urine Appearance Cloudy H (Clear) Urine pH 6.0 (5.0-9.0) Ur Specific [place] 1.020 (1.001-1.035) Urine Protein 1+ H (Negative) mg/dL Urine Glucose (UA) Negative (Negative) mg/dL Urine Ketones Trace H (Negative) mg/dL Ur Blood (Man) Trace (Negative) Urine Nitrate Positive H (Negative) Urine Bilirubin Negative (Negative) Urine Urobilinogen 1.0 (<2.0) mg/dL Leukocyte Esterase Rfl 3+ H (Negative) JOHN/UL Urine RBC 0-2 (0-2) /hpf Urine WBC >100 H (0-3) /hpf Ur Squamous Epith Cells None seen (Few) /hpf Urine Bacteria 4+ H /hpf Urine Casts 0-2 <Renetta Ledezma MD - Last Filed: 01/30/25 09:21> Imaging Data Radiologist's impression: Impressions Chest X-Ray 01/28/25 20:50 IMPRESSION: 1. No acute cardiopulmonary disease. Abdomen/Pelvis CT 01/29/25 00:04 IMPRESSION: 1. No acute intra-abdominal/pelvic process. 2. 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 3. Small sliding-type hiatal hernia. <Renetta Ledezma MD - Last Filed: 01/30/25 09:21> ECG Data EKG #1: Attestation: I personally reviewed and interpreted this ECG as follows: <Renetta Ledezma MD - Last Filed: 01/30/25 09:21> ECG completion date: 01/28/25 <Renetta Ledezma MD - Last Filed: 01/30/25 09:21> ECG completion time: 19:17 <Renetta Ledezma MD - Last Filed: 01/30/25 09:21> Interpretation: Normal sinus rhythm at a rate of 82 beats per minute. [place] interval 180. QRS 94. QT/QTC 355/416. Normal axis. Good R-wave progression across the precordial leads. No T-wave inversions. <Renetta Ledezma MD - Last Filed: 01/30/25 09:21> EKG #2: Attestation: I personally reviewed and interpreted this ECG as follows: <Renetta Ledezma MD - Last Filed: 01/30/25 09:21> ECG completion date: 01/28/25 <Renetta Ledezma MD - Last Filed: 01/30/25 09:21> ECG completion time: 22:06 <Renetta Ledezma MD - Last Filed: 01/30/25 09:21> Interpretation: Normal sinus rhythm at a rate of 90 beats per minute. There are PVCs present. W[place] interval 184. QRS 95. QT/QTC 353/434. R-wave progression across the precordial leads. T-wave slightly flat in 3 but upright in contiguous inferior leads 2 and AVF. No other T-wave inversions <Renetta Ledezma MD - Last Filed: 01/30/25 09:21> Discharge Plan Discharge Clinical Impression: CRP elevated, Leukocytosis, Normocytic anemia, Fever and chills, Urinary tract infection in male, Enlarged prostate, Hiatal hernia, Dysuria <Skyla Mendieta APRN - Last Filed: 01/28/25 18:54> Patient Disposition: Home <Skyla Mendieta APRN - Last Filed: 01/28/25 18:54> Condition: Stable <Skyla Mendieta APRN - Last Filed: 01/28/25 18:54> Instructions: Antibiotic Form, Hiatal Hernia (DC), Enlarged Prostate (BPH) (ED), Urinary Tract Infection in Men (ED), Fever in Adults (ED), Leukocytosis (ED), Dysuria (ED), Anemia (ED) <Skyla Mendieta APRN - Last Filed: 01/28/25 18:54> Additional Instructions: As we discussed, you have evidence of urinary tract infection. You received your 1st dose of IV antibiotics in the rest of the course has been prescribed. Follow-up with your urologist at [facility]. Acetaminophen/Tylenol (maximum 4000 mg per day) is safe to take with NSAIDs (ibuprofen/Motrin) for pain relief and/or fever but Return to the emergency department with any new or worsening symptoms. For example, if you develop flank pain, nausea/vomiting, etc. Pyridium/phenazopyridine can help with the pain you are experiencing from a urinary tract infection. It can discolor your urine and tears (turn them orange). Do not wear contact lenses while taking this medication. <Skyla Mendieta APRN - Last Filed: 01/28/25 18:54> Patient Language: Slovak <Skyla Mendieta APRN - Last Filed: 01/28/25 18:54> Prescriptions: New cefpodoxime 200 mg tablet 200 mg PO BID 12 Days Qty: 24 0RF Rx Instructions: must administer with a meal/food phenazopyridine [Pyridium] 100 mg tablet 100 mg PO TID PRN (Reason: pain) Qty: 5 0RF Rx Instructions: received first dose in ED <Skyla Mendieta APRN - Last Filed: 01/28/25 18:54> Follow-up/Referrals: PHYSICIAN NOT ON STAFF,NONSTAFF [Primary Care Provider] - <Skyla Mendieta APRN - Last Filed: 01/28/25 18:54> Stand Alone Forms: Work/School Release IP <Skyla Mendieta APRN - Last Filed: 01/28/25 18:54> Time of Disposition: 00:21 <Skyla Mendieta APRN - Last Filed: 01/28/25 18:54> 00:21 <Renetta Ledezma MD - Last Filed: 01/30/25 09:21>
[2025-01-28 19:36] LABS: Hematocrit 40.4 % (42.0-52.0); Hemoglobin 13.2 g/dL (14.0-18.0); Immature Granulocyte Percent A 0.5 % (0-0.5); Lymphocytes Absolute Auto 1.63 K/mm3 (0.9-3.2); Mean Corpuscular HGB Conc 32.7 g/dl (32-36); Mean Corpuscular Hemoglobin 29.6 pg (26-34); Mean Corpuscular Volume 90.6 fl (80-100); Nucleated Red Blood Cells Absolute Auto 0.000 K/mm3 (0.0-0.012); Nucleated Red Blood Cells Perc 0.0 % (0.0-0.2); Platelet Count Result 245 k/mm3 (150-375); Red Blood Count 4.46 M/mm3 (4.6-6.20); White Blood Count 18.6 K/mm3 (4.5-10.0)
[2025-01-28 19:47] LABS: INR 1.0; Partial Thromboplastin Time 27.4 Seconds (22.3-36.8); Prothrombin Time 13.0 Seconds (11.1-14.7)
[2025-01-28 19:50] LABS: Alanine Aminotransferase 14 U/L (6-50); Albumin Level 4.0 g/dL (3.5-5.1); Alkaline Phosphatase 65 U/L (38-126); Anion Gap 9 mmol/L (4-12); Aspartate Amino Transferase 25 U/L (17-59); Bilirubin,Total 0.5 mg/dL (0.2-1.3); Blood Urea Nitrogen 21 mg/dL (9-20); Calcium 8.4 mg/dL (8.4-10.2); Carbon Dioxide 23 mmol/L (22-30); Chloride 102 mmol/L (98-107); Estimated CRCL calculation 62 ml/min; Estimated Glomerular Filt Rate > 60; Glucose 108 mg/dL (65-110); Potassium 4.2 mmol/L (3.4-5.0); Sodium 134 mmol/L (137-145); Total Protein 7.2 g/dL (6.3-8.2)
[2025-01-28 20:06] LABS: Add Urine Microscopic? YES; Appearance Urine Cloudy (Clear); Glucose Urine UA Negative (Negative); Leukocyte Esterase Ur 3+ LEU/UL (Negative); Nitrate Urine Positive (Negative); Non Pathogenic Casts 0-2; Specific Grav Ur 1.020 (1.001-1.035)
[2025-01-28 20:07] LABS: CRP 14.3 mg/dL (<1.0)
[2025-01-28 21:08] VITALS: BP 153/80; PULSE 83; TEMP 36.7; O2SAT 97
--- NOTE | 2025-01-28 22:01 | ECG_ITS ---
Test Date: 2025-01-28 22:06:28 Measurements Intervals [place] Rate: 90 P: 74 MI: 184 QRS: -12 QRSD: 95 T: 30 QT: 353 QTc: 434 Interpretive Statements SINUS RHYTHM WITH OCCASIONAL VENTRICULAR PREMATURE COMPLEXES Compared to ECG 01/28/2025 19:17:14 Ventricular premature complex(es) now present Electronically Signed On 01-29-2025 18:50:54 CDT by Jacinto Schreiber M.D.
--- NOTE | 2025-01-28 22:03 | PC.NURSE ---
pt presents to ED c/o difficulty urinating, febrile, and chills, onset yesterday. Pt states i had a scope put in there on friday and since then my symptoms have worsen. denies hematuria
--- OUTSIDE RECORDS SUMMARY | 2025-01-28 22:57 | XMS_ITS | Encounter Summary ---
Author Organization [facility] Address [address] [place] [address] Care Team Providers Care Costuming Supervisor Name Role Phone Issa Dominguez DO Primary Care Provider [phone] Encounter Details Date Type Department Care Team (Late st Contact Info) Description 12/17/2024 Results Follow-Up [facility] [id number] [place] [address] [place] [address] [place] [address] [place] [address] COLON CANCER SCREEN, STOOL DNA [...] st Contact Info) Description 05/23/2025 10:45 AM SCHOOL SUPERVISOR Office Visit [facility] at the [facility] [address] [place] [address] Nadine Rivera MD [address] [place] [address] 05/23/2025 1:30 PM SCHOOL SUPERVISOR Office Visit [facility] [address] [address] [place] [address] [place] [address] [place] [address] documented as of this encounter Goals [...] documented as of this encounter Care Teams Costuming Supervisor Relationship Specialty Start [place] [address] [place] [address] PCP - General Family Practice 11/11/24 documented as of this encounter
--- OUTSIDE RECORDS SUMMARY | 2025-01-28 22:57 | XMS_ITS | Clinical Summary ---
Author Organization [facility] Address [address] [place] [address] Care Team Providers Care Pressure Testing Technician Name Role Phone Issa Dominguez DO Primary Care Provider [phone]- [phone] Allergies Active Allergy Reactions Criticality Noted Date [...] Description 01/25/2025 12:40 PM CDT Procedure visit [facility] at the [place] [address] [place] [phone] Nadine Rivera MD Gross hematuria (Primary Dx); BPH with obstruction/lower urinary tract symptoms; Prostate cancer screening 01/18/2025 1:11 PM CDT - 01/18/2025 11:59 PM CDT Hospital Encounter [facility] Imaging Services [address] [address] Nadine Rivera MD Discharge Disposition: Home or Self Care 01/09/2025 Orders Only [facility] at the [facility] [address] [place] [address] Nadine Rivera MD Gross hematuria (Primary Dx) 12/21/2024 External Device Data STL ABSTRACTION Provider, Abstract 12/17/2024 Results Follow-Up [facility] [address] [facility] [place] [address] Issa Dominguez DO COLON CANCER SCREEN, STOOL DNA 11/30/2024 External Device Data STL ABSTRACTION Provider, Abstract 11/25/2024 External Device Data STL ABSTRACTION Provider, Abstract 11/24/2024 External Device Data STL ABSTRACTION Provider, Abstract 11/23/2024 External Device Data STL ABSTRACTION Provider, Abstract 11/11/2024 1:30 PM CDT Office Visit [facility] [address] [place] [phone] Issa Dominguez DO Benign hypertension (Primary Dx); Pure hypercholesterolemia; Benign prostatic hyperplasia with lower urinary tract symptoms, symptom details unspecified; Screening for colon cancer; Primary osteoarthritis involving multiple joints from Last 3 Months Family History Medical History Relation Name Comments Melanoma Brother 2 Tono [place] Heart Disease Father Slade Cancer Maternal Grandfather Fritz stomach cancer Cancer Mother Qing melanoma Heart Disease Paternal Grandfather [place] Asthma Sister Keiry Cancer Sister Keiry melanoma Heart Disease Sister Keiry Diabetes Neg Hx Relation Name Status Comments Brother 1 Alive Brother 2 Otno [place] Alive Father Slade Maternal Grandfather Fritz Mother Qing Paternal Grandfather [place] Sister Keiry Alive Social History Tobacco Use [...] CDT Respiratory Rate 18 05/24/2024 10:51 AM ENTERPRISE APPLICATION DEVELOPER Oxygen Saturation 97% 11/11/2024 1:11 PM CDT Inhaled Oxygen Concentration - - Weight 83.5 kg (184 lb) 01/25/2025 12:04 PM CDT Height 180.3 cm (5' 11) 11/11/2024 1:11 PM CDT Body Mass Index 25.66 11/11/2024 1:11 PM CDT Plan of Treatment Upcoming Encounters Date Type Department Care Team (Late st Contact Info) Description 05/23/2025 10:45 AM ENTERPRISE APPLICATION DEVELOPER Office Visit [facility] at the [facility] [address] [place] [address] Nadine Rivera MD [address] [place] [address] 05/23/2025 1:30 PM ENTERPRISE APPLICATION DEVELOPER Office Visit [facility] [address] [address] [place] [address] [place]ing[place] [address] [facility] [place] [address] Health Maintenance Due Date Last Done [...] Dominguez DO Medical Devices Implanted Type Area Engineer Exhauster Device Identifier Shelf Expiration Date Model / Serial / Lot Mesh Parietex Progrip Flat Sht [id number] - [id number] Implanted:Qty : 1 on 03/12/2023 by Elijah Del Valle MD at [facility] Mesh Right: Abdomen [employer] - COVID[employer]EN [id number] 11/04/2027 [id number] / / [id number] Mesh Parietex Progrip Flat Sht [id number] - [id number] Implanted:Qty : 1 on 03/12/2023 by Elijah Del Valle MD at [facility] Mesh Left: Abdomen [employer] [id number] 06/05/2027 [id number] / / [id number] Procedures Procedure Name Priority Date/Time Associated Diagnosis [...] elements seen were reported. Test Performed at: [place] [address] [place] [id number] [facility] Urine URINE SPECIMEN OBTAINED BY CLEAN CATCH PROCEDURE / Unknown 01/25/2025 12:33 PM CDT 01/26/2025 2:50 AM CDT us Nadine Rivera MD URINE ORDERABLES Final Re sult [facility] [phone] [place] [address] [place] [id number] * URINE CULTURE (01/25/2025 12:33 PM CDT) URINE CULTURE SEE NOTE Jonny IrelandBlossom Mitchell Comment: CULTURE, URINE, ROUTINE Micro Number: [id number] Test Status: Final Specimen Source: Urine, clean catch Specimen Quality: Adequate Result: No Growth Test Performed at: [place] [address] [address] [place] [id number] [facility] Urine URINE SPECIMEN OBTAINED BY CLEAN CATCH PROCEDURE / Unknown 01/25/2025 12:33 PM CDT 01/26/2025 2:50 AM CDT us Nadine Rivera MD MICROBIOLOGY - GENERAL OR DERABLES Final Result [facility] [phone] [place] [address] [address] [place] [id number] * CYTOLOGY, NON GYNE (01/25/2025 12:32 PM CDT) CASE REPORT Medical Cytology Report Case: [id number] Authorizing Provider: Nadine Rievra MD Collected: 01/25/2025 12:32 PM Ordering Location: [facility] at Received: 01/26/2025 07:26 AM the [facility] Pathologist: Gloria Hartley MD Specimen: Urine, clean catch 11:45 AM T [facility] FINAL DIAGNOSIS Urine: - Negative for high-grade urothelial carcinoma. See microscopic description. 11:45 AM T [facility] at 1145 CDT GROSS DESCRIPTION Received is a container labeled [place] and voided urine. It contains 70 mL of clear yellow fluid. One ThinPrep made. SK 11:45 AM T [facility] MICROSCOPIC DESCRIPTION The slide labeled [id number] and [place]. The ThinPrep slide shows scant benign urothelial cells and benign squamous epithelial cells. No high grade urothelial carcinoma is identified. No papillary clusters of urothelial cells are identified, which makes a low grade lesion unlikely. 11:45 AM T [facility] CLINICAL INFORMATION R31.0 - Gross hematuria [ICD-10-CM] 11:45 AM T [facility] COMMENT Special stain, immunohistochemical, and/or in situ hybridization results are interpreted with controls that demonstrate appropriate staining reactions. Note on use of immunohistochemistry reagents and in situ hybridization probes: These tests were developed and their performance characteristics determined by [facility], Department of Laboratory Medicine. It has [...] part or completely in the following laboratories: [facility], [place] #[id number] [address] [place] [address] at [place], CLIA #[id number] [address] [facility] [place] [address]. 11:45 AM CDT [facility] Body fluid URINE SPECIMEN OBTAINED BY CLEAN CATCH PROCEDURE / Unknown Collection / Unknown 01/25/2025 12:32 PM CDT 01/26/2025 7:26 AM CDT Nadine Rivera MD PATHOLOGY/CYTOLOGY ORDERA BLES Final Result [facility] CLIA# [id number] [address] [place] [address] * CT UROGRAPHY (01/18/2025 2:00 PM CDT) [...] Result [facility] CT [address] CLIA# [id number] [address] [place] [address] * COLON CANCER SCREEN, STOOL DNA (12/10/2024 11:00 AM CDT) COLOGUARD RESULT Negative Negative [facility] Comment: The Cologuard Plus (TM) test was performed on this specimen. NEGATIVE TEST RESULT. A negative (normal) Cologuard Plus result means the patient has a [id number] chance of having colorectal cancer (CRC) or [...] a 91% specificity (Cologuard Plus Clinician Brochure. [employer] [place], [place] Visit [email or web address] for more test information, references, warnings, and precautions. Stool STOOL SPECIMEN / Unknown 12/10/2024 11:00 AM CDT 12/11/2024 6:35 PM CDT Issa Dominguez DO BODY FLUIDS AND STOOLS Fin al Result [employer] CLIA # [id number] [address] , [address] [place] [address] * OCCULT BLOOD IMMUNOASSAY, COLORECTAL SCREEN (02/07/2023 10:02 AM CDT) FECAL GLOBIN SEE NOTE [employer] Comment: FECAL GLOBIN BY IMMUNOCHEMISTRY Micro Number: [id number] Test Status: Final Specimen Source: Stool Specimen Quality: Adequate Fecal Globin: Not Detected NO COLLECTION DATE RECEIVED. WE HAVE USED THE DATE THE SPECIMEN WAS RECEIVED BY THIS LABORATORY THE COLLECTION DATE. IF THIS IS INCORRECT, PLEASE CONTACT CLIENT SERVICES. PHONE NUMBER: [phone] FASTING: UNKNOWN Test Performed at: [employer] [address] [id number] Annie Bowen MD Stool STOOL SPECIMEN / Unknown 02/07/2023 5:45 AM CDT Krystin Newsome MD BODY FLUIDS AND STOOLS Final Result [facility] [phone] [facility] [address] [id number] from Last 3 Months or Most Recently Relevant to Health Maintenance Additional Health Concerns Active Problems Noted Date Diagnosed Date [place]AME[place] MYC HYPERTENSION CARE PLAN PROBLEM 5 Insurance MEDICARE PART A AND B AETNA MEDICARE SUPP AESSI RX [facility] Medicare Part D Advance Directives For more information, please contact: [phone] * Full Code (Latest Code Status on File) Date Activated Date Inactivated Comments 03/12/2023 1:31 PM 03/12/2023 8:24 PM * Full Code Date Activated Date Inactivated Comments 03/12/2023 11:29 AM 03/12/2023 1:30 PM * Full Code Date Activated Date Inactivated Comments 03/12/2023 11:23 AM 03/12/2023 11:29 AM Care Teams Pressure Testing Technician Relationship Specialty [place] [address] [facility] [place] [address] PCP - General Family Practice 11/11/24
--- OUTSIDE RECORDS SUMMARY | 2025-01-28 22:57 | XMS_ITS | Clinical Summary ---
Author Organization [facility] Address [address] [facility] [place] [address] Care Team Providers Care Hand Splitter Name Role Phone Unavailable Primary Care Provider Unavailabl e Source Comments [facility],non-owned Affiliates and Associated Physician Practices is amultiple site organization consisting of ambulatory clinics and hospital sitesin [place], [place], [place]. This disclosure is being madepursuant to the Care Everywhere program and may not contain all information available regarding this patient. Last updated 18.[facility] Encounters Date Type Department Care Team Description 11/15/2024 Lab Requisition [facility] - DermPath Lab [address] [place] [address] Shae Askew MD Neoplasm of [...] AM CDT) Case Report Dermatopathology Report Case: [id number] Authorizing Provider: Shae Askew MD Collected: 11/15/2024 09:37 AM Ordering Location: [facility] - Received: 11/16/2024 07:59 AM [...] characteristic determined by the Dermatopathology Laboratory at [facility], directed by Dr. Hermilo Martin. These tests need not be, and therefore are not, approved by the [place] Food and Drug Administration. The tests are used for clinical purposes. Billing Codes Specimen Charges Stain Charges 70441 1 5 1:26 PM CDT DERMATOPATHOLOGY LABORATORY Embedded Images 1:26 PM CDT DERMATOPATHOLOGY LABORATORY Pathology/Cytolo gy TISSUE SPECIMEN FROM SKIN / Unknown 11/15/2024 9:37 AM CDT 11/16/2024 7:59 AM CDT Shae Askew MD LAB - PATHOLOGY/CYTOLOGY ORDERAB LES Final Result DERMATOPATHOLOGY LABORATORY [facility] - Department of Dermatology [facility] [place] [facility] [address] [place] [address], [address] [phone] from Last 3 Months Insurance MEDICARE AETNA
--- OUTSIDE RECORDS SUMMARY | 2025-01-28 22:57 | XMS_ITS | Clinical Summary ---
Author Organization [facility] Address [address] [place] [address] Phone Care Team Providers Care Construction Equipment Technician Name Role Phone Krystin Newsome MD Primary [...] 81.6 kg (180 lb) 06/24/2023 1:19 PM COMMANDING OFFICER [employer]OMIC[employer] SQUAD Height 180.3 cm (5' 11) 02/02/2023 12:12 [...] Insurance MEDICARE AETNA SENIOR SUPPLEMENTAL Care Teams Construction Equipment Technician Relationship Specialty Start [place] [address] [address] [id number] PCP - General Family Medicine 09/04/22
--- OUTSIDE RECORDS SUMMARY | 2025-01-28 22:57 | XMS_ITS | Encounter Summary ---
Author Organization [facility] Address [address] [facility] [place] [address] Care Team Providers Care Grinder And Plater Name Role Phone Unavailable Primary Care Provider Unavailabl e Encounter Details Date Type Department Care Team (Late st Contact Info) Description 11/15/2024 Lab Requisition [facility] - DermPath Lab [address] [facility] [place] [phone] Shae Askew MD [address] [place] [address] Neoplasm of uncertain behavior of skin Social [...] AM CDT) Case Report Dermatopathology Report Case: [id number] Authorizing Provider: Shae Askew MD Collected: 11/15/2024 09:37 AM Ordering Location: [facility] - Received: 11/16/2024 07:59 AM [...] characteristic determined by the Dermatopathology Laboratory at [facility], directed by Dr. Hermilo Martin. These tests need not be, and therefore are not, approved by the [place] Food and Drug Administration. The tests are used for clinical purposes. Billing Codes Specimen Charges Stain Charges 43199 1 1:26 PM CDT DERMATOPATHOLOGY LABORATORY Embedded Images 1:26 PM CDT DERMATOPATHOLOGY LABORATORY Pathology/Cytolo gy TISSUE SPECIMEN FROM SKIN / Unknown 11/15/2024 9:37 AM CDT 11/16/2024 7:59 AM CDT us Shae Askew MD LAB - PATHOLOGY/CYTOLOGY ORDERAB LES Final Result DERMATOPATHOLOGY LABORATORY [facility] - Department of Dermatology [address], [address] [phone] documented in this encounter Visit Diagnoses Diagnosis Neoplasm of uncertain behavior of skin documented in this encounter
[2025-01-29] MEDS: cefTRIAXone 1 GM in SODIUM CHLORIDE 0.9% IV 50 ML 100 ML IVPB (00:09)
[2025-01-29 00:40] VITALS: BP 144/81; PULSE 80; RESP 16; O2SAT 95
[2025-01-29 00:46] VITALS: BP 133/71; PULSE 80; RESP 12; O2SAT 95
[2025-01-29 01:01] VITALS: BP 130/68; PULSE 85; RESP 18; O2SAT 96
[2025-01-29] MEDS: PHENAZOPYRIDINE HCL 100 MG TABLET PO (01:21)
== END 2025-01-29 01:05 | disposition home or self-care (01) ==
PROVIDERS: Registered Nurse; Emergency Provider Student in an Organized Health Care Education/Training Program
DX: N39.0 Urinary tract infection, site not specified (principal); D64.9 Anemia, unspecified; D72.829 Elevated white blood cell count, unspecified; R79.82 Elevated C-reactive protein (CRP); K44.9 Diaphragmatic hernia without obstruction or gangrene; N40.0 Benign prostatic hyperplasia without lower urinary tract symptoms; Z98.890 Other specified postprocedural states; I49.3 Ventricular premature depolarization
CPT/HCPCS: 36415; 71046; 74177; 80053; 81001; 83605; 85025; 85610; 85730; 86140; 87086; 93005; 96365; 99284; A9270; J0696; Q9967